=== PATIENT | female | born 2000 | race Caucasian/White ===

== ENCOUNTER 2024-07-16 14:13 | Outpatient (OUT) | payer OTHER, SELFPAY ==
--- OUTSIDE RECORDS SUMMARY | 2022-08-09 15:00 | XMS_ITS | Continuity of Care Document ---
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, [address] [place], [place], [id number], tel:[phone] [facility] Sore throat (chief complaint) Acute pharyngitis, unspecifiedBod y mass index [BMI] 45.0-49.9, adult 3 Aysha Dunham. [address], [place], [id number], [place]. tel:[phone] Referring Provider: Charla Olmstead, [facility] [place], [address]. tel:[phone] Family History Family Member Type Diagnosis Age At Onset Father Problem Cardiovascular disease Father Problem Hypertension Payers Payer name Insurance type Covered democrat ID Gema boyle(s) Home [facility] Health Plan [id number] [place] Medicaid MC [id number] Social History Type Description Quantity Date Captured [...] Mental Status Date Cognitive Assessment Orientation - [place] ed to time, place, person, situation. Patient Care Teams Name Effective Dates (start - stop) Status Members No Information
--- OUTSIDE RECORDS SUMMARY | 2022-10-02 11:51 | XMS_ITS | Continuity of Care Document ---
Author Organization [facility] [employer] Address [facility] [place] [address] Phone Care Team Providers Care Veterinary Pathologist Name Role Phone Drake DONicol Unavailable Unavailable [...] Diagnoses Date Provider Providers Copied on Encounter [facility], [address] [place] [address], [id number], [place] tel:[phone] [facility] No Information 3 Stocks Nicol. [address] [place], [place], [id number] , [place]. tel:[phone] [facility], [address] [place] [address], [id number], [place] tel:[phone] [facility] No Information 3 [facility] Iman. [address] [place], [id number], [place]. tel:[phone] Referring Provider: Iman Gardner [facility], [address], [place], [address]. tel:[phone] [facility], [address] [place] [address], [id number], [place] tel:[phone] [facility] No Information 2 Stocks Nicol. [address] [place], [id number] , [place]. tel:[phone] [facility], [address] [place] [address], [id number], [place] tel:[phone] [facility] No Information Sep-0 2 Stocks Nicol. [address] [place], [id number] , [place]. tel:[phone] [facility], [address] [place] [address], [id number], [place] tel:[phone] [facility] No Information Sep-0 2 Speak John. [address] [place], [id number] . tel:[phone] HOSPITAL DISCHARGE DAY [facility], [address] [place] [address], [id number], [place] tel:[phone] [facility] No Information Sep-0 2 Stocks Nicol. [address] [place], [id number] , [place]. tel:[phone] [facility], [address] [place] [address], [id number], [place] tel:[phone] [facility] Nuchal cord, delivered, current hospitalizationMec onium stained amniotic fluid, delivered, current [id number] weeks gestation of pregnancySingle live Sep-0 2 Spe[facility] John. [address] [place], [id number] . tel: [phone] OFFICE/OUTPA TIENT VISIT, [facility], [address] [place] [address], [id number], [place] tel:[phone] [facility] No Information 2 Stocks Nicol. [address] [place], [id number] , [place]. tel: [phone] OFFICE/OUTPA TIENT VISIT, [facility], [address] [place] [address], [id number], [place] tel:[phone] [facility] No Information 2 Stocks Nicol. [address] [place], [id number] , [place]. tel: [phone] OFFICE/OUTPA TIENT VISIT, [facility], [address] [place] [address], [id number], [place] tel:[phone] [facility] No Information 2 Stocks Nicol. [address] [place], [id number] , [place]. tel: [phone] OFFICE/OUTPA TIENT VISIT, [facility], [address] [place] [address], [id number], [place] tel:[phone] [facility] No Information 2 Stocks Nicol. [address] [place], [id number] , [place]. tel: [phone] No Charge Nurse Visit [facility], [address] [place] [address], [id number], [place] tel:[phone] [facility] No Information 2 Stocks Nicol. [address] [place], [id number] , [place]. tel: [phone] OFFICE/OUTPA TIENT VISIT, [facility], [address] [place] [address], [id number], [place] tel:[phone] [facility] No Information 2 Stocks Nicol. [address] [place], [id number] , [place]. tel: [phone] [facility], [address] [place] [address], [id number], [place] tel:[phone] [facility] No Information 2 Stocks Nicol. [address] [place], [id number] , [place]. tel: [phone] OFFICE/OUTPA TIENT VISIT, [facility], [address] [place] [address], [id number], [place] tel:[phone] [facility] No Information 2 Stocks Nicol. [address] [place], [id number] , [place]. tel: [phone] No Charge Nurse Visit [facility], [address] [place] [address], [id number], [place] tel:[phone] [facility] No Information 2 Stocks Nicol. [address] [place], [id number] , [place]. tel: [phone] OFFICE/OUTPA TIENT VISIT, [facility], [address] [place] [address], [id number], [place] tel:[phone] [facility] History of gestational hypertension 0 2 Everett Linares. [address] [place], [id number] , [place]. tel: [phone] OFFICE/OUTPA TIENT VISIT, [facility], [address] [place] [address], [id number], [place] tel:[phone] [facility] No Information 2 Stocks Nicol. [address] [place], [id number] , [place]. tel: [phone] OFFICE/OUTPA TIENT VISIT, [facility], [address] [place] [address], [id number], [place] tel:[phone] [facility] No Information 2 Stocks Nicol. [address] [place], [id number] , [place]. tel: [phone] OFFICE/OUTPA TIENT VISIT, [facility], [address] [place] [address], [id number], [place] tel:[phone] [facility] No Information 2 Stocks Nicol. [address] [place], [id number] , [place]. tel: [phone] OFFICE/OUTPA TIENT VISIT, [facility], [address] [place] [address], [id number], [place] tel:[phone] [facility] No Information 2 Stocks Nicol. [address] [place], [id number] , [place]. tel: [phone] [facility], [address] [place] [address], [id number], [place] tel:[phone] [facility] Depression (chief complaint) No Information 1 Stocks Nicol. [address] [place], [id number] , [place]. tel: [phone] No Charge Nurse Visit [facility], [address] [place] [address], [id number], [place] tel:[phone] [facility] No Information 0 Stocks Nicol. [address] [place], [id number] , [place]. tel: [phone] [facility], [address] [place] [address], [id number], [place] tel:[phone] [facility] Depression (chief complaint) Major depressive disorder, single episode, unspecified 0 Stocks Nicol. [address] [place], [id number] , [place]. tel: [phone] [facility], [address] [place] [address], [id number], [place] tel:[phone] [facility] check (chief complaint) No Information 0-202 0 Stocks Nicol. [address] [place], [id number] , [place]. tel: [phone] HOSPITAL DISCHARGE DAY [facility], [address] [place] [address], [id number], [place] tel:[phone] [facility] No Information 0 Stocks Nicol. [address] [place], [id number] , [place]. tel: [phone] OFFICE/OUTPA TIENT VISIT, EST [facility], [address] [place] [address], [id number], [place] tel:[phone] [facility] No Information 0 St[employer] Nicol. [address] [place], [id number] , [place]. tel: [phone] [facility], [address] [place] [address], [id number], [place] tel:[phone] [facility] No Information Nov-0 - 0 [place] Xavier. [address] [place], [id number] , [place]. tel: [phone] OFFICE/OUTPA TIENT VISIT, [facility], [address] [place] [address], [id number], [place] tel:[phone] [facility] No Information 0 Stocks Nicol. [address] [place], [place], [id number] , [place]. tel: [phone] OFFICE/OUTPA TIENT VISIT, [facility], [address] [place] [address], [id number], [place] tel:[phone] [facility] No Information Sep-2 0 Stocks Nicol. [address] [place], [id number] , [place]. tel: [phone] OFFICE/OUTPA TIENT VISIT, [facility], [address] [place] [address], [id number], [place] tel:[phone] [facility] No Information Sep- 0 Stocks Nicol. [address] [place], [id number] , [place]. tel: [phone] [facility], [address] [place] [address], [id number], [place] tel:[phone] [facility] No Information Sep-1 0 [place] Xavier. [address] [place], [id number] , [place]. tel: [phone] OFFICE/OUTPA TIENT VISIT, [facility], [address] [place] [address], [id number], [place] tel:[phone] [facility] No Information Sep-0 2- 0 Stocks Nicol. [address] [place], [id number] , [place]. tel: [phone] [facility], [address] [place] [address], [id number], [place] tel:[phone] [facility] No Information 0 [place] Xavier. [address] [place], [place], [id number] , [place]. tel: [phone] OFFICE/OUTPA TIENT VISIT, [facility], [address] [place] [address], [id number], [place] tel:[phone] [facility] No Information 0 Stocks Nicol. [address] [place], [id number] , [place]. tel: [phone] OFFICE/OUTPA TIENT VISIT, [facility], [address] [place] [address], [id number], [place] tel:[phone] [facility] No Information 0 Stocks Nicol. [address] [place], [id number] , [place]. tel: [phone] [facility], [address] [place] [address], [id number], [place] tel:[phone] [facility] No Information 0 [place] Xavier. [address] [place], [id number] , [place]. tel: [phone] [facility], [address] [place] [address], [id number], [place] tel:[phone] [facility] No Information 0 Jj MARYSOLH Iman. [address] [place], [address], [place]. tel: [phone] OFFICE/OUTPA TIENT VISIT, [facility], [address] [place] [address], [id number], [place] tel:[phone] [facility] No Information 0 Stocks Nicol. [address] , [place], [id number] , [place]. tel: [phone] OFFICE/OUTPA TIENT VISIT, [facility], [address] [place] [address], [id number], [place] tel:[phone] [facility] No Information 0 Stocks Nicol. [address] [place], [id number] , [place]. tel: [phone] OFFICE/OUTPA TIENT VISIT, [facility], [address] [place] [address], [id number], [place] tel:[phone] [facility] No Information 0 Stocks Nicol. [address] [place], [id number] , [place]. tel: [phone] OFFICE/OUTPA TIENT VISIT, [facility], [address] [place] [address], [id number], [place] tel:[phone] [facility] No Information 0 Stocks Nicol. [address] [place], [id number] , [place]. tel: [phone] OFFICE/OUTPA TIENT VISIT, [facility], [address] [place] [address], [id number], [place] tel:[phone] [facility] No Information 0 Stocks Nicol. [address] [place], [id number] , [place]. tel: [phone] Family History Family Member Type Diagnosis Age At Onset Mother Problem Cardiovascular disease Mother Problem Diabetes mellitus Father Problem (finding) Cardiovascular disease Immunizations Vaccine Date Status Comments Tdap administered Source: New Imm unization Record Flulaval Quad administered Source: New Im munization Record Influenza, quadrivalent, split virus,0.5ml, preserve free administered Source: New Immuniza tion Record Tdap administered Source: [facility] unization Record Payers Payer name Insurance type Covered constitution party ID Gema boyle(s) Dental [employer] [place] [id number] [place] M[place] [id number] [place] [id number] [place] M[place] [id number] [facility] Medicaid MCO CI [id number] Social History Type Description Quantity Date Captured [...] Future Order: Radiology Order Mo rph Scan ([id number]), Ordered on: Ordered Future Order: Radiology Order Mo rph Scan ([id number]), Ordered on: Ordered Future Order: Lab Order Urine pr egnancy ([id number]), Appointment on: , Collected on: Ordered Future Order: Radiology Order Mo rph Scan ([id number]), Ordered on: Ordered History Of Present Illness [...] to Body mass index [BMI] 40.0-44.9, adult influenza vaccine environmental / work hazards nutrition and weight gain counseling, special diet toxoplasmosis precau tions (cats / raw meat) sexual activity exercise indications for ultrasound HIV and other routine t ests risk factors identif ied by history anticipated course of c are illicit / recreational drugs use of any medicatio ns (including supplements, vitamins, herbs, OTC drugs) smoking counseling domestic violence seat belt use travel tobacco (ask, advise , assess, assist and arrange) alcohol childbirth classes / hospital facilities covid vaccine [...] or equal to 95th percentile for age HIV and other routine t ests risk factors identif ied by history anticipated course of c are nutrition and weight gain counseling, special diet toxoplasmosis precau tions (cats / raw meat) exercise indications for ultrasound influenza vaccine environmental / work hazards travel tobacco (ask, advise , assess, assist and arrange) alcohol sexual activity seat belt use childbirth classes / hospital facilities illicit / recreational drugs use of any medicatio ns (including supplements, vitamins, herbs, OTC drugs) smoking counseling domestic violence Assessments Type Assessment Date No Information Patient Care Teams Name Effective Dates (start - stop) Status Members No Information
--- OUTSIDE RECORDS SUMMARY | 2024-02-20 06:30 | XMS_ITS ---
Author Organization [facility] vices Address [address] [place] [id number] Care Team Providers Care Electrician Shop Name Role Phone Juno Ortiz Primary Care Provider REASON FOR VISIT 4 weeks Weight loss Social History Sex Assigned At : Social History Observation Description Sex Assigned At Female Encounters Encounter Location Date Provider Diagnosis Main [address] [place] [id number] 02/20/2024 Juno Ortiz Plan Of Treatment No Information Progress Notes * Se MONTEeDOB:2000 (24 yo F)Acc No.[id number]:02/20/2024 Medical Note Patient: Brianda ARGUELLO Provider: Chidi Ortiz :2000 A ge:23 Y S ex:Female Date:02/20/2024 [address] [id number] Subjective: * Chief Complaints: * 1 . 4 weeks Weight loss. * Medical History: Objective: * Vitals: Assessment: Plan: * Treatment: * Billing Information: * Visit Code: * Procedure Codes: * Electronic signature of IRASEMA Ortiz on 07/16/2024 at 12:58 PM EDT Sign off status: Pending * Provider: Chidi Ortiz Date: 0 02/20/2024 Generated for Printi ng/Faxing/eTransmitting on: 0 07/16/2024 12:58 PM EDT
--- OUTSIDE RECORDS SUMMARY | 2024-03-27 06:30 | XMS_ITS ---
Author Organization [facility] vices Address [address] [place] [id number] Care Team Providers Care Internal Corrosion Specialist Name Role Phone Juno Ortiz Primary Care Provider REASON FOR VISIT 4 week weight loss Social History Sex Assigned At : Social History Observation Description Sex Assigned At Female Encounters Encounter Location Date Provider Diagnosis Main [address] [place] [id number] 03/27/2024 Juno Ortiz Plan Of Treatment No Information Progress Notes * Se MONTEeDOB:2000 (24 yo F)Acc No.[id number]:03/27/2024 Patient: Brinada ARGUELLO Provider: Chidi Ortiz :2000 A ge:23 Y S ex:Female Date:03/27/2024 [address] [facility] Subjective: * Chief Complaints: * 1 . 4 week weight loss. * Medical History: Objective: * Vitals: Assessment: Plan: * Treatment: * Billing Information: * Visit Code: * Procedure Codes: * Electronic signature of IRASEMA Ortiz on 07/16/2024 at 12:58 PM EDT Sign off status: Pending * Provider: Chidi Ortiz Date: 0 03/27/2024 Generated for Printi ng/Faxing/eTransmitting on: 0 07/16/2024 12:58 PM EDT
--- OUTSIDE RECORDS SUMMARY | 2024-07-16 13:10 | XMS_ITS | Encounter Summary ---
Author Organization [facility] Address [address] [place] [address] Care Team Providers Care Fast Food Fry Cook Name Role Phone Unavailable Primary Care Provider Unavailabl e Reason for Visit * Reason Comments Infertility Encounter Details Date Type Department Care Team (Late st Contact Info) Description 07/16/2024 1:10 PM EDT Office Visit [facility] [address] [place] [phone] Beto Quinones, DO [address] [place] [address] Female infertility; PCOS (polycystic ovarian syndrome); Abnormal uterine bleeding (AUB) Social History Tobacco Use Types Packs/Day Years Used Date Smoking Tobacco: Never Assessed Comments Unknown Sex and Gender Information Value Date Recorded Sex Assigned at Not on file Legal Sex Female 1:55 PM EST Gender Identity Not on file Sexual Orientation Not on file documented as of this encounter Last Filed Vital Signs Vital Sign Reading Time Taken Comments Blood Pressure 120/82 07/16/2024 1:18 PM EDT Pulse - - Temperature - - Respiratory Rate - - Oxygen Saturation - - Inhaled Oxygen Concentration - - Weight 133 kg (292 lb 1.9 oz) 07/16/2024 1:18 PM EDT Height 177.8 cm (5' 10 ) 07/16/2024 1:18 PM EDT Body Mass Index 41.91 07/16/2024 1:18 PM EDT documented in this encounter Progress Notes * Johanna Hargrove LPN - 07/16/2024 1:10 PM EDT Reason for Appointment: Patient ID: Patt Monte is a 24 y.o. female who presents for Infertility Patient presents today for Fertility Follow Up appointment. MEDICATIONS Current Outpatient Medications Medication Instructions sertraline (ZOLOFT) 100 mg, Daily ALLERGIES No Known Allergies PROBLEMS Active Ambulatory Problems Diagnosis Date Noted No Active Ambulatory Problems Resolved Ambulatory Problems Diagnosis Date Noted No Resolved Ambulatory Problems No Additional Past Medical History HISTORY PAST MEDICAL HISTORY SOCIAL HISTORY History reviewed. No pertinent past medical history. Social History Tobacco Use Smoking status: Not on file Smokeless tobacco: Not on file Substance Use Topics Alcohol use: Not on file Drug use: Not on file FAMILY HISTORY No family history on file. SURGICAL HISTORY Past Surgical History: Procedure Laterality Date GALLBLADDER REVIEW OF SYSTEMS Review of Systems: Review of Systems Constitutional: Negative. HENT: Negative. Eyes: Negative. Respiratory: Negative. Cardiovascular: Negative. Gastrointestinal: Negative. Genitourinary: Negative. Musculoskeletal: Negative. Skin: Negative. Neurological: Negative. All other systems reviewed and are negative. Hematological: Negative. Endocrine: Negative. Allergic/Immunologic: Negative. OBJECTIVE Objective: Physical Exam Constitutional: Appearance: Normal appearance. She is well-developed. Cardiovascular: Rate and Rhythm: Normal rate and regular rhythm. Pulmonary: Effort: Pulmonary effort is normal. Breath sounds: Normal breath sounds. Abdominal: General: Bowel sounds are normal. There is no distension. Palpations: Abdomen is soft. Tenderness: There is no abdominal tenderness. There is no guarding or rebound. Musculoskeletal: General: No swelling. Normal range of motion. Right lower leg: No edema. Left lower leg: No edema. Neurological: Mental Status: She is alert and oriented to person, place, and time. Skin: General: Skin is warm and dry. Psychiatric: Mood and Affect: Mood normal. Behavior: Behavior normal. Vitals and nursing note reviewed. Exam conducted with a battery service technician present. Vitals: Estimated body mass index is 41.91 kg/m?? as calculated from the following: Height as of this encounter: 5' 10 . Weight as of this encounter: 292 lb 1.9 oz. BP: 120/82 Patient's last menstrual period was 06/10/2024. ASSESSMENT & PLAN ICD-10-CM 1. Female infertility N97.9 Patient presents today to discuss fertility. Patient was given a standing lab order and ultrasound to have obtained. Patient was instructed to call the office once menstrual cycle begins so femara can be called into patients pharmacy. Patient has been instructed to take Femara on days 3-7 of cycle.On day 21 of cycle patient is to have progesterone labs drawn. Patient was advised to have intercourse on days 12, 14, 16, 18, and 20 of cycle. We will do three rounds of Femara and if patient has not conceived by then, we will perform HSG. Patient has voiced understanding and will call our office for any further questions/concerns. Pt partner given semen analysis, pt is currently two days late for cycle. Rx for metformin faxed to pharmacy. No orders of the defined types were placed in this encounter. Follow Up: In 4 months if needed Documented by Johanna Hargrove LPN on behalf of: Beto Quinones DO documented in this encounter Plan of Treatment Upcoming Encounters Date Type Department Care Team (Late st Contact Info) Description 07/29/2024 10:00 AM EDT Ancillary Procedure [facility] [address] [place] [address] [place] [address] Scheduled Orders Name Type Priority Associated Diagnoses Orde r Schedule hCG, quantitative, Lab Routine PCOS (polycystic ovarian syndrome) Abnormal uterine bleeding (AUB) Ordered: 07/16/2024 TSH Lab Routine PCOS (polycystic ovarian syndrome) Abnormal uterine bleeding (AUB) Ordered: 07/16/2024 T4, free Lab Routine PCOS (polycystic ovarian syndrome) Abnormal uterine bleeding (AUB) Ordered: 07/16/2024 CBC and differential Lab Routine PCOS (polycystic ovarian syndrome) Abnormal uterine bleeding (AUB) Ordered: 07/16/2024 Follicle stimulating hormone Lab Routine PCOS (polycystic ovarian syndrome) Abnormal uterine bleeding (AUB) Ordered: 07/16/2024 Luteinizing hormone Lab Routine PCOS (polycystic ovarian syndrome) Abnormal uterine bleeding (AUB) Ordered: 07/16/2024 Hemoglobin A1c Lab Routine Abnormal uterine bleeding (AUB) Ordered: 07/16/2024 DHEA-sulfate Lab Routine PCOS (polycystic ovarian syndrome) Abnormal uterine bleeding (AUB) Ordered: 07/16/2024 DHEA Lab Routine PCOS (polycystic ovarian syndrome) Abnormal uterine bleeding (AUB) Expected: 07/16/2024 (Approximate), Expires: 07/16/2025 US Pelvis w/ TV Imaging Routine PCOS (polycystic ovarian syndrome) Abnormal uterine bleeding (AUB) Expected: 07/16/2024, Expires: 07/16/2025 Antimullerian hormone (AMH) Lab Routine Abnormal uterine bleeding (AUB) Expected: 07/16/2024 (Approximate), Expires: 07/16/2025 documented as of this encounter Visit Diagnoses Diagnosis Female infertility Female infertility of unspecified origin PCOS (polycystic ovarian syndrome) Polycystic ovaries Abnormal uterine bleeding (AUB) documented in this encounter
--- OUTSIDE RECORDS SUMMARY | 2024-07-16 14:20 | XMS_ITS | Clinical Summary ---
Author Organization [facility] Address [id number] [address] [place] [address] Care Team Providers Care Still Operator Gin Name Role Phone No Pcp, No Pcp Primary Care Provider Unavailabl e Allergies No known active allergies Medications amoxicillin-pot clavulanate (AUGMENTIN) 875-125 mg per tablet Take 1 tablet by mouth every 12 (twelve) hours for 10 days. 20 tablet 06/20/2024 07/01/19 25 Encounters Date Type Department Care Team Description 06/20/2024 9:20 PM EDT - 06/20/2024 9:59 PM EDT Emergency [facility] [address] [place] [address] Joby Fabian DO Strep pharyngitis (Primary Dx) Discharge Disposition: Home 06/20/2024 Travel 06/01/2024 9:34 PM EDT - 06/01/2024 10:19 PM EDT Emergency [facility] - Emergency [address] [place] [address] Chele Burt MD Muscle strain of left foot, initial encounter (Primary Dx) Discharge Disposition: Home 06/01/2024 Travel from Last 3 Months Social History Tobacco Use Types Packs/Day Years Used Date Smoking Tobacco: Never Smokeless Tobacco: Never Tobacco Cessation:Counseling Given: Not Answered Alcohol Use Standard Drinks/Week Comments Never 0 (1 standard drink = 0.6 oz pur e alcohol) Hunger Screening Answer Date Recorded Within the past 12 months we worried whether our food would run out before we got money to buy more. Never True 06/20/2024 Within the past 12 months th e food we bought just didn't last and we didn't have money to get more. Never True 06/20/2024 Comments No Sex and Gender Information Value Date Recorded Sex Assigned at Not on file Legal Sex Female 1:05 PM EDT Gender Identity Not on file Sexual Orientation Not on file Last Filed Vital Signs Vital Sign Reading Time Taken Comments Blood Pressure 149/98 06/20/2024 9:14 PM EDT Pulse 118 06/20/2024 9:25 PM EDT Temperature 37.6 C (99.7 F) 06/20/2024 9:14 PM EDT Respiratory Rate 16 06/01/2024 9:40 PM EDT Oxygen Saturation 97% 06/20/2024 9:25 PM EDT Inhaled Oxygen Concentration - - Weight 127 kg (280 lb) 06/20/2024 9:14 PM EDT Height 177.8 cm (5' 10 ) 06/20/2024 9:14 PM EDT Body Mass Index 40.18 06/20/2024 9:14 PM EDT Plan of Treatment Health Maintenance Due Date Last Done Comments Depression Screening 2013 Adult BMI Follow Up Plan 05/30/2019 DTaP,Tdap and Td Vaccines (1 - Tdap) 2020 Pap Smear 2022 Influenza Vaccine 10/06/2024 Adult BMI Screening 06/20/2025 06/20/2024 Tobacco Screening 06/20/2025 06/20/2024 Medical Devices Not on file Procedures Procedure Name Priority Date/Time Associated Diagnosis Comments POCT RAPID STREP A Routine 06/20/2024 9: 16 PM EDT XR ANKLE LT MIN 3 VWS STAT 06/01/2024 9:48 PM EDT XR FOOT LT MIN 3 VWS STAT 06/01/2024 9:48 PM EDT from Last 3 Months Results * (ABNORMAL) POCT rapid strep A (06/20/2024 9:16 PM EDT) [facility] POC Rapid Strep Screen Positive(A ) Negative 06/21/2024 5:36 AM EDT [facility] Structure of throat / Unknown 06/20/2024 9:16 PM EDT 06/21/2024 5:35 AM EDT us Joby Fabian DO POINT OF CARE TEST ORDER INDRA Final Result [facility] [address] [place] [address], [place] * X-ray ankle left minimum 3 views (06/01/2024 9:48 PM EDT) Anatomical Region Laterality Modality Lower Extremities, MSK, Ankle Left Co mputed Radiography 06/01/2024 10:0 9 PM EDT Narrative 06/01/2024 10:09 PM EDT History: Rolling injury to left ankle with lateral pain Exam/Technique: AP, oblique, and lateral views of the left ankle Comparison: None Findings: There is no evidence of fractures of any age and no other focal bony abnormalities. The ankle mortise is intact and normally aligned IMPRESSION: Normal left ankle radiographs. Finalized by David Bowens MD on 06/01/2024 10:09 PM Procedure Note David Bowens MD - 06/01/2024 History: Rolling injury to left ankle with lateral pain Exam/Technique: AP, oblique, and lateral views of the left ankle Comparison: None Findings: There is no evidence of fractures of any age and no other focalbony abnormalities. The ankle mortise is intact and normally aligned IMPRESSION: Normal left ankle radiographs. Finalized by David Bowens MD on 06/01/2024 10:09 PM us Chele Burt MD IMG DIAGNOSTIC IMAGING ORDERABL ES Final Result * X-ray foot left minimum 3 views (06/01/2024 9:48 PM EDT) Anatomical Region Laterality Modality Lower Extremities, MSK, Foot Left Com puted Radiography 06/01/2024 10:0 8 PM EDT Narrative 06/01/2024 10:09 PM EDT History: Rolling injury to left ankle. Lateral pain Exam/Technique: Axial, oblique, and lateral views of the left foot. Comparison: None Findings: No fractures or other focal bony abnormalities are depicted in any location. All joints of the foot appear intact and normally aligned. IMPRESSION: Normal left foot radiographs. Finalized by David Bowens MD on 06/01/2024 10:09 PM Procedure Note David Bowens MD - 06/01/2024 History: Rolling injury to left ankle. Lateral pain Exam/Technique: Axial, oblique, and lateral views of the left foot. Comparison: None Findings: No fractures or other focal bony abnormalities are depicted inany location. All joints of the foot appear intact and normally aligned. IMPRESSION: Normal left foot radiographs. Finalized by David Bowens MD on 06/01/2024 10:09 PM Chele Burt MD IMG DIAGNOSTIC IMAGING ORDERABL ES Final Result from Last [address] [place] [address] [address] [employer] Care Teams Still Operator Gin Relationship Specialty Start Date End Date No Pcp, [place] [address] PCP - General Family Medicine 06/01/24
--- OUTSIDE RECORDS SUMMARY | 2024-07-16 14:21 | XMS_ITS | Encounter Summary ---
Author Organization [facility] Address [address] [place] [address] Care Team Providers Care Lining Strap Closer Name Role Phone Unavailable Primary Care Provider Unavailabl e Encounter Details Date Type Department Care Team (Latest Contact Info) Description 07/13/2024 Travel Social History Tobacco Use Types Packs/Day Years Used Date Smoking Tobacco: Never Assessed Comments Unknown Sex and Gender Information Value Date Recorded Sex Assigned at Not on file Legal Sex Female 1:55 PM EST Gender Identity Not on file Sexual Orientation Not on file documented as of this encounter Plan of Treatment Upcoming Encounters Date Type Department Care Team (Late st Contact Info) Description 07/29/2024 10:00 AM EDT Ancillary Procedure [facility] [address] [place] [address] [place] [address] documented as of this encounter Visit Diagnoses Not on filedocumented in this encounter
--- OUTSIDE RECORDS SUMMARY | 2024-07-16 14:21 | XMS_ITS | Patient Health Record ---
Author Organization [facility] Address [address] [place] [address] Care Team Providers Care Clinical Nurse Occupational Medicine Name Role Phone Juno Ortiz Primary Care Provider Mima Redmond Unavailable [phone] Ernst, Ly Unavailable [phone] Allergies No Known Allergies Results Component Value Reference Range Notes TSH WITH FT4 REFLEX Reviewed date:01/24/2024 08:17:06 AM Interpretation: Performing Lab: Notes/Report: TSH 0.865 0.270-4.200 uIU/mL The [place] [employer] (JOSE M) recommends the following reference ranges for TSH levels during : First trimester: 0.1 to 2.5 mIU/L Second trimester: 0.2 to 3.0 mIU/L Third trimester: 0.3 to 3.0 mIU/L UNLESS OTHERWISE INDICATED, ALL TESTING PERFORMED AT: [id number] [address] [place] [address] WEIGHER ALLOY: ISAIAH ARCE M.D. CLIA NUMBER [id number] CAP ACCREDITATION AUID [id number] LDL-CHOL DIRECT Reviewed date:01/24/2024 08:04:06 AM Interpretation: Performing Lab: Notes/Report: LDL-CHOL, DIRECT 127 <130 mg/dL ADULT LDL CHOLESTEROL CLASSIFICATION <100mg/dL Optimal 100-129 Near/Abov e Optimal 130-159mg/dL Borderlin e High >160mg/dL High Risk Desirable range <100 mg/dL for patients with CHD or diabetes and <70 mg/dL for diabetic patients with known heart disease. COMPREHENSIVE METABOLIC PANE L WITH GFR Reviewed date:01/24/2024 08:23:30 AM Interpretation: Performing Lab: Notes/Report: GLUCOSE 82 65-125 mg/dL BUN 12 6-20 mg/dL CALCIUM 9.3 8.6-10.5 mg/dL CREATININE, BLOOD 0.76 0.51-1.15 mg/dL eGFR (2020 CKD-EPI) 114 >59 mL/min/1.73m2 SODIUM 141 135-148 mmol/L POTASSIUM 4.4 3.5-5.4 mmol/L CHLORIDE 104 96-107 mmol/L CO2 26 18-32 mmol/L ANION GAP 11 7-16 mmol/L T. BILIRUBIN 0.3 <1.3 mg/dL ALK PHOS 56 38-148 U/L AST-SGOT 20 9-40 U/L ALT-SGPT 22 5-33 U/L T. PROTEIN 7.1 6.0-8.3 g/dL ALBUMIN 4.6 3.5-5.2 g/dL POCT A1C Reviewed date:01/23/2024 01:04:20 PM Interpretation: Performing Lab: Notes/Report: LIPID PANEL WITH REFLEX TO D IRECT LDL Reviewed date:01/24/2024 08:23:34 AM Interpretation: Performing Lab: Notes/Report: CHOLESTEROL 219 100-199 mg/dL TRIGLYCERIDES 514 20-149 mg/dL VLDL-CHOL, CALCULATED 103 <30 mg/dL HDL-CHOL 32 >=50 mg/dL LDL-CHOL, CALCULATED SEE NOTE <130 mg/dL Unable to calculate LDL due to triglycerides greater than 400 mg/dl. ADULT LDL CHOLESTEROL CLASSIFICATION <100mg/dL Optimal 100-129 Near/Abov e Optimal 130-159mg/dL Borderlin e High >160mg/dL High Risk Desirable range <100 mg/dL for patients with CHD or diabetes and <70 mg/dL for diabetic patients with known heart disease. Direct LDL is recommended for patients with triglycerides >400. LDL/HDL <4.1 UNABLE TO CALCULATE LDL/HDL RATIO MALE FEMALE below average risk <2.3 <2.3 average risk <5.0 <4.1 moderate risk <7.1 <5.6 high risk >7.1 >5.6 CHOL/HDL 6.8 2.0-4.5 Reason For Referral Reason weight loss Diagnosis 1 Obesities, morbid (E 66.01) Referral Organization Main Referring Provider First Name Juno Referring Provider Last Name Studel Referring Provider Speciality Physician Concrete Mixer Operator Referred Provider Vel Nutrition Morenita herapy Referred Provider Specialty Nutrition Referral Priority Routine Reason weight loss Diagnosis 1 Obesities, morbid (E 66.01) Diagnosis 2 BMI 40.0-44.9, adult (Z68.41) Referral Organization Main Referring Provider First Name Juno Referring Provider Last Name Angel Referring Provider Speciality Physician Concrete Mixer Operator Referred Provider [facility] Referred Provider Specialty Weight Loss General Notes Rosa Gonsales 02/06 11:31:53 AM >{{TOFIRSTNAME}} This is [facility] following up on an outstanding referral that was ordered by your provider. Please call our office at , so we can _update our records., Angela Rod 02/14/2024 09:21:09 AM >no response from patient. Referral Priority Routine Medications Medication SIG (Take, Route, Frequency, Duration) Notes Start Date End Date Status Semaglutide(0.25 or 0.5MG/DOS) 2 MG/3ML 0.25mg Subcutaneous weekly for 28 days 01/23/2024 Active Fenofibrate 48 MG 1 tablet Orally Once a day for 30 day(s) 01/28/2024 Active Carson 3 1000 MG 1 capsule Orally Thr ee times a day for 30 day(s) 01/28/2024 Active Social History Tobacco Use: Social History Observation Description Date Details (start date - stop date) Never Smoker NA - NA Sex Assigned At : Social History Observation Description Sex Assigned At Female CAGE-AID Questionnaire (2018 Edition) Question Answer Notes Have you ever felt that you ought to cut down on your drinking or drug use? No Have people annoyed you by criticizing your drin liana or drug use? No Have you ever felt bad or guilty about your drin liana or drug use? No Have you ever had a drink or used drugs first thing in the morning to steady your nerves or to get rid of a hangover? No CAGE-AID Score 0 Interpretation Negative PRAPARE Question Answer Notes What is your current housing situation? I have h ousing Are you worried about losing your housing? No What is the highest level of school that you have finished? 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 Check all that apply I do not have problems meeting my needs Has lack of transportation k ept you from medical appointments, meetings, work or from getting things needed for daily living? No How often do you see or talk to people that you care about and feel close to? (For example: talking to friends on the phone, visiting friends or family, going to yarsanism or club meetings) More than 5 times a week How stressed are you? Stress is when someone feels tense, nervous, anxious, or can't sleep at night because their mind is troubled Not at all In the past year have you sp ent more than 2 nights in a row in a alf, correction, nursing home center, or juvenile correctional facility? No Are you a refugee? No What country are you from? [place] Do you feel physically and e motionally safe where you currently live? Yes In the past year, have you b een afraid of your partner or ex-partner? No PRAPARE Score: 0 Tobacco Control (Standard) Question Answer Notes Tobacco use: Nonsmoker Problems Problem Type SNOMED Code ICD Code Onset Dates Problem Status W/U Status Risk Notes Problem Obesities, morbi d (E66.01) Active confirmed Problem Body mass index 40+ - morbidly obese (709366598) BMI 40.0-44.9, adult (Z68.41) Active confirmed Problem Menstrual disorder (258633122) Irregular menses (N92.6) Active confirmed Problem Hypertriglyceridemia (756313925) Hypertriglyceridemia (E78.1) Active confirmed Vital Signs Heart Rate 73 /min 02/05/2024 Temperature 98.8 degrees Fahrenheit 01/28/2024 Angela Mattson 01/28/2024 10:07:26 AM EST > Respiratory Rate 18 /min 01/28/2024 Noreen Rod 01/28/2024 10:07:26 AM EST > Blood pressure diastolic 89 mm Hg 02/05/2024 Oximetry 100 % 01/28/2024 Angela Rod 01/28/2024 10:07:26 AM EST > Height-cm 175.26 cm 02/05/2024 Weight-kg 133.36 kg 02/05/2024 Height 69 in 02/05/2024 Blood pressure systolic 135 mm Hg 02/05/2024 Weight 294 lbs 02/05/2024 BMI 43.41 kg/m2 02/05/2024 Encounters Encounter Location Date Provider Diagnosis Main [address], [place] [id number] 01/23/2024 Juno Studd Screening for diabet es mellitus Z13.1 ; Obesities, morbid E66.01 ; BMI 40.0-44.9, adult Z68.41 ; Screening for thyroid disorder Z13.29 ; Screening for cardiovascular condition Z13.6 and Irregular menses N92.6 Main [address] [place] [id number] 01/28/2024 Juno Studd Obesities, morbid E6 6.01 and Hypertriglyceridemia E78.1 Dental Main [address] [place], [place] [id number] 02/05/2024 Mima Redmond Encounter for screening for dental disorders Z13.84 ; Dental caries into dentine K02.62 and Encounter for dental examination and cleaning with abnormal findings Z01.21 Main [address] [place] [id number] 01/23/2024 Juno Studd Main [address] [place] [id number] 01/24/2024 Juno Studd Main [address] [place] [id number] 01/24/2024 Juno Studd Main [address] [place] [id number] 01/25/2024 Juno Studd Main [address] [place] [id number] 01/25/2024 Juno Studd Obesities, morbid E6 6.01 [facility] [address] [facility] [place] [id number] 02/01/2024 Juno Studd Main [address] [facility] [place] [id number] 02/04/2024 Juno Studd Main [address], [place] [id number] 02/05/2024 Juno Studd Main [address] [id number] 02/05/2024 Juno Studd Main [address] [id number] 02/07/2024 Juno Studd Main [address], [place] [id number] 02/20/2024 Juno Studd Obesities, morbid E6 6.01 Assessments Encounter Date Diagnosis (ICD Code) Assessment Notes Treatment Notes Treatment Clinical Notes Section Notes 01/23/2024 Obesities, morbid (ICD-10 - E66.01) pt has been steadily gaining weight. we will start Semaglutide today to aid in weight reduction. discussed witht eh patient the importance of creating ahelathy sleep schedule and geting a good 8 hours of sleep to best help her efforts in losing weight. Diet was discussed as well as the importance of increasing daily activity level. She was also refered to nutrion to help her imporve eating habits. 01/25/2024 Obesities, morbid (ICD-10 - E66.01) 01/28/2024 Obesities, morbid (ICD-10 - E66.01) 01/28/2024 Hypertriglyceridemia (ICD-10 - E78.1) Learning About High Triglycerides material was published will repeat labs in 6 weeks 01/23/2024 Screening for diabet es mellitus (ICD-10 - Z13.1) 02/05/2024 Encounter for screen ing for dental disorders (ICD-10 - Z13.84) 02/20/2024 Obesities, morbid (ICD-10 - E66.01) 02/05/2024 Dental caries into dentine (ICD-10 - K02.62) 01/23/2024 BMI 40.0-44.9, adult (ICD-10 - Z68.41) 01/23/2024 Screening for thyroi d disorder (ICD-10 - Z13.29) 02/05/2024 Encounter for dental examination and cleaning with abnormal findings (ICD-10 - Z01.21) 01/23/2024 Screening for cardiovascular condition (ICD-10 - Z13.6) 01/23/2024 Irregular menses (ICD-10 - N92.6) pt agrees to see OB will set up own appointment Plan Of Treatment No Information Insurance Providers Payer Name Payer Address Payer Phone Subscriber Number Group Number Insured Name Patient Relationship to Insured Coverage Start Date Coverage End Date [facility] [address] [place] [address] [id number] Brianda Harding Self - patient is the insured 4 Medical (General) History Medical History History ICD Code miscariage Surgical History Surgery Date(Month/Year) cholecystectomy 2022 Hospitalization History Reason Date(Month/Year) see above
--- OUTSIDE RECORDS SUMMARY | 2024-07-16 14:21 | XMS_ITS | Encounter Summary ---
Author Organization [facility] Address [address] [place] [address] Care Team Providers Care Brand Leader Name Role Phone Unavailable Primary Care Provider Unavailabl e Encounter Details Date Type Department Care Team (Late st Contact Info) Description 07/16/2024 Bamboo flowsheet [facility] [address] [place] [address] Beto Quinones [address] [place], [place] [address] Social History Tobacco Use Types Packs/Day Years [...] AM EDT Ancillary Procedure [facility] [address] [place] [address] documented as of this encounter Visit Diagnoses Not on filedocumented in this encounter
--- OUTSIDE RECORDS SUMMARY | 2024-07-16 14:21 | XMS_ITS | Clinical Summary ---
Author Organization [facility] Address [address] [place] [address] Care Team Providers Care Electrician Constructor Supervisor Name Role Phone Unavailable Primary Care Provider Unavailabl e Allergies No known active allergies Medications sertraline (Zoloft) 100 MG tablet Take 100 mg by mouth Daily 08/13/2023 Active metFORMIN XR (Glucophage-XR) 500 MG 24 hr tabletIndication s:PCOS (polycystic ovarian syndrome),Abnorm al uterine bleeding (AUB) Take 1 tablet (500 mg) by mouth in the evening. Take with meals Do not crush, chew, or split. 30 tablet 11 07/16/2024 Active Encounters Date Type Department Care Team Description 07/16/2024 1:10 PM EDT Office Visit [facility] [address] [place] [id number] Beto Quinones DO Female infertility; PCOS (polycystic ovarian syndrome); Abnormal uterine bleeding (AUB) 07/16/2024 Bamboo flowsheet [facility] [address] [place] [address] Beto Quinones DO 07/13/2024 Travel from Last 3 Months Social History [...] Mass Index 41.91 07/16/2024 1:18 PM EDT Plan of Treatment Upcoming Encounters Date Type Department Care Team (Late st Contact Info) Description 07/29/2024 10:00 AM EDT Ancillary Procedure [facility] [address] [facility] [place] [id number] Insurance [employer]
[2024-07-16 14:34] LABS: Basophils Percent Auto 0.4 % (0.2-2.0); Eosinophils Absolute Auto 0.1 10^3/uL (0.0-0.7); Eosinophils Percent Auto 1.6 % (0.9-7.0); Hemoglobin 12.8 g/dL (12.0-16.0); Immature Granulocytes Abs Auto 0.03 10^3/uL (0.00-0.03); Immature Granulocytes Pct Auto 0.4 % (0.0-0.5); Lymphocytes Absolute Auto 2.3 10^3/uL (1.2-3.8); Lymphocytes Percent Auto 28.9 % (20.5-60.0); Mean Corpuscular HGB Conc 34.6 g/dL (29.9-35.2); Mean Corpuscular Hemoglobin 29.1 pg (26.7-34.0); Mean Corpuscular Volume 84.1 fL (81.0-99.0); Mean Platelet Volume 9.8 fL (9.5-13.5); Monocytes Absolute Auto 0.3 10^3/uL (0.3-0.8); Monocytes Percent Auto 3.9 % (1.7-12.0); Neutrophils Absolute Auto 5.2 10^3/uL (1.4-6.5); Neutrophils Percent Auto 64.8 % (43.0-75.0); Platelet Count 300 10^3/uL (150-450); Red Cell Distribution Width 12.8 % (11.0-15.0)
[2024-07-16 14:51] LABS: Estimated Average Glucose 111 mg/dL; Glycohemoglobin A1C 5.5 % (4.5-6.2)
[2024-07-16 15:10] LABS: Thyroid Stimulating Hormone 0.812 uIU/mL (0.358-3.740)
[2024-07-16 15:30] LABS: HCG Quantitative <1 mIU/mL
[2024-07-16 15:47] LABS: Free T4 0.89 ng/dL (0.76-1.46)
[2024-07-17 04:07] LABS: FSH 2.6 mIU/mL (.); Luteinizing Hormone(LH) 3.2 mIU/mL (.)
[2024-07-19 04:50] LABS: Anti-Mullerian Hormone (AMH) 6.66 ng/mL (.)
[2024-07-20 12:08] LABS: DHEA, Serum 196 ng/dL (31-701)
== END 2024-07-16 14:14 | disposition home or self-care (01) ==
PROVIDERS: Visit Provider Obstetrics & Gynecology
DX: E28.2 Polycystic ovarian syndrome (principal); N93.9 Abnormal uterine and vaginal bleeding, unspecified; N92.6 Irregular menstruation, unspecified
CPT/HCPCS: 36415; 82397; 82626; 82627; 83001; 83002; 83036; 84439; 84443; 84702; 85025

== ENCOUNTER 2024-10-13 18:13 | Emergency (ER) | payer OTHER, BC, SELFPAY ==
--- OUTSIDE RECORDS SUMMARY | 2022-08-09 15:00 | XMS_ITS | Continuity of Care Document ---
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 Phone Charla Saxena Unavailable Unavail able Allergies, Adverse Reactions, Alerts Substance Reaction Status Criticality No Known Allergies Active No Inform ation Medications Medication Instructions Dosage Effective Dates (start - stop) Status Comments amoxicillin 875 mg tablet take 1 tablet by oral route every 12 hours 875 MG - Active Procedures Procedure Date STREP A ASSAY W/OPTIC STREP A ASSAY W/OPTIC OFFICE/OUTPATIENT VISIT, NEW Results Test Name Date and Time Measure Units Reference Range Abnormal Flag Status Commen ts Panel Description: Strep A Screen Final Strep A Screen 19:50:00 Negative Final Advance Directives Directive Yes / No Effective Date File Name No Information Encounters Encounter Description Practice Location Reason(s) For Visit Diagnoses Date Provider Providers Copied on Encounter OFFICE/OUTPA TIENT VISIT, NEW [facility], [address] [facility] [place], [id number], tel:[phone] [facility] Sore throat (chief complaint) Acute pharyngitis, unspecifiedBod y mass index [BMI] 45.0-49.9, adult 3 Aysha Dunham. [address], [place], [id number], [place]. tel:[phone] Referring Provider: Charla Olmstead, [facility] [place], [address]. tel:[phone] Family History Family Member Type Diagnosis Age At Onset Father Problem Cardiovascular disease Father Problem Hypertension Payers Payer name Insurance type Covered alliance party ID Gema boyle(s) Home [facility] Health Plan [id number] [place] Medicaid [id number] Social History Type Description Quantity Date Captured Comments Alcohol Use Details No Caffeine Use Details soda Tobacco Use Status Current non-smoker Smoking Status Never smoker Non-Smoking Tobacco Use Details : No Details Available : No Details Available Sex Female Gender Identity Female Vital Signs Date / Time: Height Weight BMI Pulse Rate Blood Pressure Temperature Respiratory Rate Body Surface Area Head Circumference Head Circ. Percentile Wt./Jc. Percentile BMI percentile Pulse Ox Inhaled Ox 7:50 PM 70.00 in 135.080 kg (297.80 lbs) 42.7 3 kg/m eter (2) 87 /min 122/88 mm[Hg] 97.70 F 18 /min 97 % Chief Complaint And Reason For Visit From encounter dated '08/09/2022 19:00'. Sore throat (chief complaint). Description: Onset: 1 Week. The problem is severe. Pain level: 8/10.The problem has worsened. The patient denies aggravating factors. The patient denies relieving factors. Associated symptoms include sinus pressure. Pertinent negatives include chills/rigors, cough, dy spnea, facial pain, fatigue, fever, headache, hemoptysis, myalgia, nasal congestion, otalgia, pharyngitis, postnasal drainage, rash, rhinitis, sputum, tooth pain or wheezing. Additional information: Pt presents with a ST x 1 week. She states it has gotten worse today and feels like she's swallowing glass. Hx of frequent strep. Reason For Referral Reason For Referral No Information History Of Present Illness Encounter Date Complaint History Of Prese nt Illness Sore throat Onset: 1 Week. T he problem is severe. Pain level: 8/10. The problem has worsened. The patient denies aggravating factors. The patient denies relieving factors. Associated symptoms include sinus pressure. Pertinent negatives include chills/rigors, cough, dyspnea, facial pain, fatigue, fever, headache, hemoptysis, myalgia, nasal congestion, otalgia, pharyngitis, postnasal drainage, rash, rhinitis, sputum, tooth pain or wheezing. Additional information: Pt presents with a ST x 1 week. She states it has gotten worse today and feels like she's swallowing glass. Hx of frequent strep. Functional Status Date Functional Assessmen t Pain Score 8/10 Instructions Date Instruction Additional Infor eli Patients treatment p suresh: -Complete antibiotics as RX -Strep test was negative-Monitor for signs of allergy to the medication such as lips or tongue swelling and discontinue and contact office for alternate medication to be sent in -Use tylenol or motrin OTC as directed on the label for age/weight. RTC PRN 7-10 days Related to Acute pharyngitis, unspecified Dietary needs education Related to Body mass index [BMI] 45.0-49.9, adult Assessments Type Assessment Date assessment Acute pharyngitis, unspecified J impression Patient presents to the urgent care with complaint of sore throat that has been there for a week and only getting worse. States that she cannot even swallow any longer because of the pain that she has in her throat. Exam reveals old bilateral AOM with pharynx erythema. Treatment is as follows assessment Body mass index [BMI] 45.0-49.9, adult Mental Status Date Cognitive Assessment Orientation - [place] ed to time, place, person, situation. Patient Care Teams Name Effective Dates (start - stop) Status Members No Information
--- OUTSIDE RECORDS SUMMARY | 2022-10-02 11:51 | XMS_ITS | Continuity of Care Document ---
Author Organization [facility] [employer] Address [facility] [place] [address] Phone Care Team Providers Care Director Of Mobile Marketing Name Role Phone Drake DONicol Unavailable Unavailable Allergies, Adverse Reactions, Alerts Substance Reaction Status Criticality Penicillins Hives/Skin Rash(unknown) Active No Information Medications Medication Instructions Dosage Effective Dates (start - stop) Status Comments Citalopram Hydrobromide 10 MG Oral Tablet Take 1 tablet by mouth once daily - Active magnesium 400 mg (as magnesium oxide) tablet take 1 tablet by oral route 2 times every day 1 tablet - Active 28 mg iron-800 mcg tablet take 1 Tablet by Oral route once 1 Tablet - Active Enfamom samples given to pt in office ibuprofen 800 mg tablet take 1 tablet by oral route 3 times every day with food as needed 800 MG - Active Problems Condition Type Effective Dates (start - stop) Clini stephanie Status Comments No Known Problems Procedures Procedure Date PERIODIC ORAL EVALUATION EST PT 023 BITEWINGS - FOUR IMAGES PANORAMIC IMAGE PROPHYLAXIS - ADULT Treatment Plan Completed [facility] URINALYSIS, AUTO, W/O SCOPE OFFICE/OUTPATIENT VISIT, EST OFFICE/OUTPATIENT VISIT, EST URINALYSIS, AUTO, W/O SCOPE OFFICE/OUTPATIENT VISIT, EST URINALYSIS, AUTO, W/O SCOPE URINALYSIS, AUTO, W/O SCOPE OFFICE/OUTPATIENT VISIT, EST No Charge Nurse Visit OFFICE/OUTPATIENT VISIT, EST URINALYSIS, AUTO, W/O SCOPE OFFICE/OUTPATIENT VISIT, EST IMMUNIZATION ADMIN TDAP VACCINE >7 IM URINALYSIS, AUTO, W/O SCOPE No Charge Nurse Visit URINALYSIS, AUTO, W/O SCOPE OFFICE/OUTPATIENT VISIT, EST URINALYSIS, AUTO, W/O SCOPE OFFICE/OUTPATIENT VISIT, EST OFFICE/OUTPATIENT VISIT, EST URINALYSIS, AUTO, W/O SCOPE URINALYSIS, AUTO, W/O SCOPE OFFICE/OUTPATIENT VISIT, EST URINALYSIS, AUTO, W/O SCOPE URINE TEST OFFICE/OUTPATIENT VISIT, EST IMMUNIZATION ADMIN FLU VAC NO PRSV 4 LUPIS 3 YRS+ VV-OFFICE/OUTPATIENT VISIT EST No Charge Nurse Visit Telephone (Audio Only) Office Visit (Est ) [place] Post Visit [facility] URINALYSIS, AUTO, W/O SCOPE OFFICE/OUTPATIENT VISIT, EST Resin-Based Composite-One Surface, Poste rior Treatment Plan Completed OFFICE/OUTPATIENT VISIT, EST IMMUNIZATION ADMIN FLU VAC NO PRSV 4 LUPIS 3 YRS+ URINALYSIS, AUTO, W/O SCOPE OFFICE/OUTPATIENT VISIT, EST URINALYSIS, AUTO, W/O SCOPE OFFICE/OUTPATIENT VISIT, EST URINALYSIS, AUTO, W/O SCOPE Resin-Based Composite-Three Surfaces, Po sterior Resin-Based Composite-Two Surfaces, Post erior Resin-Based Composite-Two Surfaces, Post erior OFFICE/OUTPATIENT VISIT, EST URINALYSIS, AUTO, W/O SCOPE Resin-Based Composite-One Surface, Poste rior Resin-Based Composite-Three Surfaces, Po sterior Resin-Based Composite-Three Surfaces, Po sterior Resin-Based Composite-Two Surfaces, Post erior OFFICE/OUTPATIENT VISIT, EST URINALYSIS, AUTO, W/O SCOPE IMMUNIZATION ADMIN TDAP VACCINE >7 IM OFFICE/OUTPATIENT VISIT, EST URINALYSIS, AUTO, W/O SCOPE Resin-Based Composite-Two Surfaces, Post erior Resin-Based Composite-Three Surfaces, Po sterior Comprehensive Oral Evaluation-New Or Est ablished P Panoramic Film Bitewings-Four Films Prophylaxis-Adult OFFICE/OUTPATIENT VISIT, EST URINALYSIS, AUTO, W/O SCOPE OFFICE/OUTPATIENT VISIT, EST URINALYSIS, AUTO, W/O SCOPE URINALYSIS, AUTO, W/O SCOPE OFFICE/OUTPATIENT VISIT, EST ROUTINE VENIPUNCTURE OFFICE/OUTPATIENT VISIT, EST URINALYSIS, AUTO, W/O SCOPE URINALYSIS, AUTO, W/O SCOPE URINE TEST OFFICE/OUTPATIENT VISIT, NEW Advance Directives Directive Yes / No Effective Date File Name No Information Encounters Encounter Description Practice Location Reason(s) For Visit Diagnoses Date Provider Providers Copied on Encounter [facility], [address] [place] [address], [id number], [place] tel:[phone] [facility] No Information 3 [facility]. [address] [place], [id number] , [place]. tel:[phone] [facility], [address] [place] [address], [id number], [place] tel:[phone] [facility] No Information 3 [facility]. [address] [place], [address], [place]. tel:[phone] Referring Provider: Iman Gardner [facility], [address], [place], [address]. tel:[phone] [facility], [address] [place] [address], [id number], [place] tel:[phone] [facility] No Information 2 [facility]. [address] [place], [id number] , [place]. tel:[phone] [facility], [address] [place] [address], [id number], [place] tel:[phone] [facility] No Information Sep-0 2 [facility]. [address] [place], [id number] , [place]. tel:[phone] [facility], [address] [place] [address], [id number], [place] tel:[phone] [facility] No Information Sep-0 2 [facility]. [address] [place], [id number] . tel:[phone] HOSPITAL DISCHARGE DAY [facility], [address] [place] [address], [id number], [place] tel:[phone] [facility] No Information Sep-0 2 [facility]. [address] [place], [id number] , [place]. tel:[phone] [facility], [address] [place] [address], [id number], [place] tel:[phone] [facility] Nuchal cord, delivered, current hospitalizationMec onium stained amniotic fluid, delivered, current [id number] weeks gestation of pregnancySingle live Sep-0 2 [facility]. [address] [place], [id number] . tel: [phone] OFFICE/OUTPA TIENT VISIT, [facility], [address] [place] [address], [id number], [place] tel:[phone] [facility] No Information 2 [facility]. [address] [place], [id number] , [place]. tel: [phone] OFFICE/OUTPA TIENT VISIT, [facility], [address] [place] [address], [id number], [place] tel:[phone] [facility] No Information 2 [facility]. [address] [place], [id number] , [place]. tel: [phone] OFFICE/OUTPA TIENT VISIT, [facility], [address] [place] [address], [id number], [place] tel:[phone] [facility] No Information 2 [facility]. [address] [place], [id number] , [place]. tel: [phone] OFFICE/OUTPA TIENT VISIT, [facility], [address] [place] [address], [id number], [place] tel:[phone] [facility] No Information 2 [facility]. [address] [place], [id number] , [place]. tel: [phone] No Charge Nurse Visit [facility], [address] [place] [address], [id number], [place] tel:[phone] [facility] No Information 2 [facility]. [address] [place] [place], [id number] , [place]. tel: [phone] OFFICE/OUTPA TIENT VISIT, [facility], [address] [place] [address], [id number], [place] tel:[phone] [facility] No Information 2 [facility]. [address] [place], [id number] , [place]. tel: [phone] [facility], [address] [place] [address], [id number], [place] tel:[phone] [facility] No Information 2 [facility]. [address] [place] [place], [id number] , [place]. tel: [phone] OFFICE/OUTPA TIENT VISIT, [facility], [address] [place] [address], [id number], [place] tel:[phone] [facility] No Information 2 [facility]. [address] [place] [place], [id number] , [place]. tel: [phone] No Charge Nurse Visit [facility], [address] [place] [address], [id number], [place] tel:[phone] [facility] No Information 2 [facility]. [address] [place], [id number] , [place]. tel: [phone] OFFICE/OUTPA TIENT VISIT, [facility], [address] [place] [address], [id number], [place] tel:[phone] [facility] History of gestational hypertension 0 2 Everett Linares. [address] [place], [id number] , [place]. tel: [phone] OFFICE/OUTPA TIENT VISIT, [facility], [address] [place] [address], [id number], [place] tel:[phone] [facility] No Information 2 [facility]. [address] [place], [id number] , [place]. tel: [phone] OFFICE/OUTPA TIENT VISIT, [facility], [address] [place] [address], [id number], [place] tel:[phone] [facility] No Information 2 [facility] [facility]. [address] [place], [id number] , [place]. tel: [phone] OFFICE/OUTPA TIENT VISIT, [facility], [address] [place] [address], [id number], [place] tel:[phone] [facility] No Information 2 [facility]. [address] [place], [id number] , [place]. tel: [phone] OFFICE/OUTPA TIENT VISIT, [facility], [address] [place] [address], [id number], [place] tel:[phone] [facility] No Information 2 [facility]. [address] [place], [id number] , [place]. tel: [phone] [facility], [address] [place] [address], [id number], [place] tel:[phone] [facility] Depression (chief complaint) No Information 1 [facility]. [address] [place], [id number] , [place]. tel: [phone] No Charge Nurse Visit [facility], [address] [place] [address], [id number], [place] tel:[phone] [facility] No Information 0 [facility]. [address] [place], [id number] , [place]. tel: [phone] [facility], [address] [place] [address], [id number], [place] tel:[phone] [facility] Depression (chief complaint) Major depressive disorder, single episode, unspecified 0 [facility]. [address] [place], [id number] , [place]. tel: [phone] [facility], [address] [place] [address], [id number], [place] tel:[phone] [facility] check (chief complaint) No Information 0-202 0 [facility]. [address] [place], [id number] , [place]. tel: [phone] HOSPITAL DISCHARGE DAY [facility], [address] [place] [address], [id number], [place] tel:[phone] [facility] No Information 0 [facility] [facility]. [address] [place], [id number] , [place]. tel: [phone] OFFICE/OUTPA TIENT VISIT, EST [facility], [address] [place] [address], [id number], [place] tel:[phone] [facility] No Information 0 [facility]. [address] [place], [id number] , [place]. tel: [phone] [facility], [address] [place] [address], [id number], [place] tel:[phone] [facility] No Information Nov-0 - 0 [facility]. [address] [place] [place], [id number] , [place]. tel: [phone] OFFICE/OUTPA TIENT VISIT, [facility], [address] [place] [address], [id number], [place] tel:[phone] [facility] No Information 0 [facility]. [address] [place], [id number] , [place]. tel: [phone] OFFICE/OUTPA TIENT VISIT, [facility], [address] [place] [address], [id number], [place] tel:[phone] [facility] No Information Sep-2 0 [facility]. [address] [place], [id number] , [place]. tel: [phone] OFFICE/OUTPA TIENT VISIT, [facility], [address] [place] [address], [id number], [place] tel:[phone] [facility] No Information Sep- 0 [facility]. [address] [place], [id number] , [place]. tel: [phone] [facility], [address] [place] [address], [id number], [place] tel:[phone] [facility] No Information Sep-1 0 [facility]. [address] [place] [place], [id number] , [place]. tel: [phone] OFFICE/OUTPA TIENT VISIT, [facility], [address] [place] [address], [id number], [place] tel:[phone] [facility] No Information Sep-0 2- 0 [facility]. [address] [place], [id number] , [place]. tel: [phone] [facility], [address] [place] [address], [id number], [place] tel:[phone] [facility] No Information 0 [facility]. [address] [place], [place], [id number] , [place]. tel: [phone] OFFICE/OUTPA TIENT VISIT, [facility], [address] [place] [address], [id number], [place] tel:[phone] [facility] No Information 0 [facility]. [address] [place], [id number] , [place]. tel: [phone] OFFICE/OUTPA TIENT VISIT, [facility], [address] [place] [address], [id number], [place] tel:[phone] [facility] No Information 0 [facility]. [address] [place], [id number] , [place]. tel: [phone] [facility], [address] [place] [address], [id number], [place] tel:[phone] [facility] No Information 0 [facility]. [address] [place], [id number] , [place]. tel: [phone] [facility], [address] [place] [address], [id number], [place] tel:[phone] [facility] No Information 0 Jj MARYSOLH [facility]. [address] [place], [address], [place]. tel: [phone] OFFICE/OUTPA TIENT VISIT, [facility], [address] [place] [address], [id number], [place] tel:[phone] [facility] No Information 0 [facility]. [address] , [place], [id number] , [place]. tel: [phone] OFFICE/OUTPA TIENT VISIT, [facility], [address] [place] [address], [id number], [place] tel:[phone] [facility] No Information 0 [facility]. [address] [place], [id number] , [place]. tel: [phone] OFFICE/OUTPA TIENT VISIT, [facility], [address] [place] [address], [id number], [place] tel:[phone] [facility] No Information 0 [facility]. [address] [place], [id number] , [place]. tel: [phone] OFFICE/OUTPA TIENT VISIT, [facility], [address] [place] [address], [id number], [place] tel:[phone] [facility] No Information 0 [facility]. [address] [place], [id number] , [place]. tel: [phone] OFFICE/OUTPA TIENT VISIT, [facility], [address] [place] [address], [id number], [place] tel:[phone] [facility] No Information 0 [facility]. [address] [place], [id number] , [place]. tel: [phone] Family History Family Member Type Diagnosis Age At Onset Mother Problem Cardiovascular disease Mother Problem Diabetes mellitus Father Problem (finding) Cardiovascular disease Immunizations Vaccine Date Status Comments Tdap administered Source: New Imm unization Record Flulaval Quad administered Source: New Im munization Record Influenza, quadrivalent, split virus,0.5ml, preserve free administered Source: New Immuniza tion Record Tdap administered Source: [facility] unization Record Payers Payer name Insurance type Covered alliance party ID Gema boyle(s) [employer] [place] [id number] [place] [employer] MCO CI [id number] [place] [employer] M[place] CI [id number] [place] [employer] MCO CI [id number] [facility] Medicaid MCO CI [id number] Social History Type Description Quantity Date Captured Comments Sex Female Smoking Status No Information Sexual Orientation Straight or heterosexual Gender Identity Female Chief Complaint And Reason For Visit No Information Reason For Referral Reason For Referral No Information Plan Of Treatment Date Type Action Status Goal Dietary manageme nt education, guidance, and counseling completed Goal Dietary manageme nt education, guidance, and counseling completed Patient Education Weeks 34 to 36 of Your : Care Instructions completed Patient Education Weeks 26 to 30 of Your : Care Instructions completed Patient Education Weeks 14 to 18 of Your : Care Instructions completed Patient Education Weeks 14 to 18 of Your : Care Instructions completed Patient Education Tests During a High-Risk : Care Instructions completed Patient Education Weeks 34 to 36 of Your : Care Instructions completed Patient Education Weeks 34 to 36 of Your : Care Instructions completed Patient Education Weeks 34 to 36 of Your : Care Instructions completed Patient Education Weeks 30 to 32 of Your : Care Instructions completed Patient Education Weeks 30 to 32 of Your : Care Instructions completed Future Order: Radiology Order Mo rph Scan ([id number]), Ordered on: Ordered Future Order: Radiology Order Mo rph Scan ([id number]), Ordered on: Ordered Future Order: Lab Order Urine pr egnancy ([id number]), Appointment on: , Collected on: Ordered Future Order: Radiology Order Mo rph Scan ([id number]), Ordered on: Ordered History Of Present Illness Encounter Date Complaint History Of Prese nt Illness Depression There is improve ment of initial symptoms. The patient reports functioning as somewhat difficult. The patient presents with difficulty falling asleep and difficulty staying asleep. Additional information: She is taking her citalopram consistently. The hydroxyzine is only helping somewhat with sleep. Feels like she is managing okay with the depression. Wants to increase the dose. Depression This is a follow up visit. The patient presents with difficulty falling asleep and difficulty staying asleep but denies loss of appetite. Additional information: Depression isn't better or worse. Taking the 10 mg of celexa. check The patient has no feeding complications, nursing difficulties, breast problems, vaginal bleeding, urinary problems or bowel problems. She has not resumed sexual activity. Additional Information: Not having much bleeding. Bottlefeeding. No depression. Light lochia. No pain. She would like to start pill. Functional Status Date Functional Assessmen t No Information Instructions Date Instruction Additional Infor eli Giving encouragement to exercise Related to Body mass index [BMI] 40.0-44.9, adult Dietary management e ducation, guidance, and counseling Related to Body mass index [BMI] 40.0-44.9, adult nutrition and weight gain counseling, special diet toxoplasmosis precau tions (cats / raw meat) sexual activity exercise indications for ultrasound influenza vaccine environmental / work hazards HIV and other routine t ests risk factors identif ied by history anticipated course of c are smoking counseling domestic violence seat belt use travel tobacco (ask, advise , assess, assist and arrange) alcohol illicit / recreational drugs Feb-25-2022 use of any medicatio ns (including supplements, vitamins, herbs, OTC drugs) childbirth classes / hospital facilities covid vaccine recommend Will increase the hy droxyzine and celexa. Refills sent in. Call if need to adjust further. Patient is at home and I in my office. She consents to virtual visit. Related to Major depressive disorder, single episode, unspecified Patient increased to 20 mg of celexa. Call if depression worsens. Follow up in 2 weeks. She is at home and I am in my office. Telephone call for 5 min. Related to Major depressive disorder, single episode, unspecified Follow up in 4 weeks . Can start control pills next week. Related to Encounter for routine follow-up No leaning out of the window signs and symptoms of la bor abnormal lab values influenza vaccine selecting a care provide r smoking counseling domestic violence family pl anning / tubal sterilization TDAP vaccination Exercises education, guidance, and counseling Related to Body mass index (BMI) pediatric, greater than or equal to 95th percentile for age Dietary management e ducation, guidance, and counseling Related to Body mass index (BMI) pediatric, greater than or equal to 95th percentile for age illicit / recreational drugs HIV and other routine t ests risk factors identif ied by history anticipated course of c are nutrition and weight gain counseling, special diet toxoplasmosis precau tions (cats / raw meat) sexual activity exercise indications for ultrasound influenza vaccine environmental / work hazards travel tobacco (ask, advise , assess, assist and arrange) alcohol smoking counseling domestic violence seat belt use childbirth classes / hospital facilities use of any medicatio ns (including supplements, vitamins, herbs, OTC drugs) Assessments Type Assessment Date No Information Patient Care Teams Name Effective Dates (start - stop) Status Members No Information
--- OUTSIDE RECORDS SUMMARY | 2024-02-18 05:30 | XMS_ITS ---
Author Organization [facility] vices Address [address] [place] [id number] Care Team Providers Care Seamless Tube Drawer Name Role Phone Juno Ortiz Primary Care Provider [phone] Ly Kelly [phone] REASON FOR VISIT [facility] Social History Sex Assigned At : Social History Observation Description Sex Assigned At Female Encounters Encounter Location Date Provider Diagnosis Main [address] [place] [id number] 02/18/2024 Ly uDkes Plan Of Treatment Next Appt Details Provider Name:Quyen Randolph, 10/14/2024 02:00:00 PM, [address] [place], [id number], Progress Notes * Se MONTEeDOB:2000 (24 yo F)Acc No.[id number]:02/18/2024 Progress Notes Patient: Gabrielle JAMESJunitoBrianda Provider: Lisa Dukes :2000 A ge:23 Y S ex:Female Date:02/18/2024 [id number] Pcp:Juno Ortiz Subjective: * Chief Complaints: * 1 . [facility]. * Medical History: Objective: * Vitals: Assessment: Plan: * Treatment: Care Plan: * Problems: * Billing Information: * Visit Code: * Procedure Codes: * Electronic signature of JASKARAN Cuevas sa on 10/13/2024 at 06:20 PM EDT Sign off status: Pending * Provider: Lisa Dukes Date: 0 02/18/2024 Generated for Sheron Patton on: 0 10/13/2024 06:20 PM EDT
--- OUTSIDE RECORDS SUMMARY | 2024-02-20 06:30 | XMS_ITS ---
Author Organization [facility] vices Address [address] [place] [id number] Care Team Providers Care Sight Effects Specialist Name Role Phone Juno Ortiz Primary Care Provider [phone] REASON FOR VISIT 4 weeks Weight loss Social History Sex Assigned At : Social History Observation Description Sex Assigned At Female Encounters Encounter Location Date Provider Diagnosis Main [address] [place], [place] [id number] 02/20/2024 Juno Ortiz Plan Of Treatment Next Appt Details Provider Name:Quyen Randolph, 10/14/2024 02:00:00 PM, [address] [place], [place], [id number], Progress Notes * Se MONTEeDOB:2000 (24 yo F)Acc No.[id number]:02/20/2024 Medical Note Patient: Brianda ARGUELLO Provider: Chidi Ortiz :2000 A ge:23 Y S ex:Female Date:02/20/2024 Address[address] [place], [place] Subjective: * Chief Complaints: * 1 . 4 weeks Weight loss. * Medical History: Objective: * Vitals: Assessment: Plan: * Treatment: * Billing Information: * Visit Code: * Procedure Codes: * Electronic signature of IRASEMA Ortiz on 10/13/2024 at 06:19 PM EDT Sign off status: Pending * Provider: Chidi Ortiz Date: 0 02/20/2024 Generated for Sheron ames/Debby/Zurdo on: 0 10/13/2024 06:19 PM EDT
--- OUTSIDE RECORDS SUMMARY | 2024-03-27 06:30 | XMS_ITS ---
Author Organization [facility] vices Address [address] [place] [id number] Care Team Providers Care Senior Payroll Manager Name Role Phone Juno Ortiz Primary Care Provider REASON FOR VISIT 4 week weight loss Social History Sex Assigned At : Social History Observation Description Sex Assigned At Female Encounters Encounter Location Date Provider Diagnosis Main [address] [place] [id number] 03/27/2024 Juno Ortiz Plan Of Treatment Next Appt Details Provider Name:Quyen Radnolph, 10/14/2024 02:00:00 PM, [address] [place], [place], [phone], Progress Notes * Keegan MONTEOB:2000 (24 yo F)Acc No.[id number]:03/27/2024 Patient: Gabrielle JAMESJunitoBrianda Provider: Chidi Ortiz :2000 A ge:23 Y S ex:Female Date:03/27/2024 [address] [facility] [place] Subjective: * Chief Complaints: * 1 . 4 week weight loss. * Medical History: Objective: * Vitals: Assessment: Plan: * Treatment: * Billing Information: * Visit Code: * Procedure Codes: * Electronic signature of IRASEMA Ortiz on 10/13/2024 at 06:20 PM EDT Sign off status: Pending * Provider: Chidi Ortiz Date: 0 03/27/2024 Generated for Sheron ames/Debby/Zurdo on: 0 10/13/2024 06:20 PM EDT
[2024-10-13 18:17] VITALS: BP 135/93; PULSE 70; TEMP 36.6; O2SAT 99; BMI 41.6
--- OUTSIDE RECORDS SUMMARY | 2024-10-13 18:20 | XMS_ITS | Encounter Summary ---
Author Organization [facility] Address [address] [place] [address] Care Team Providers Care Application Packager Name Role Phone Unavailable Primary Care Provider Unavailabl e Reason for Visit * Reason Onset Date Comments Med Refill 10/03/2024 Encounter Details Date Type Department Care Team (Late st Contact Info) Description 10/03/2024 Refill [facility] [address] [facility] [place] [phone] Beto Quinones DO [address] [facility] [place] [address] PCOS (polycystic ovarian syndrome); Abnormal uterine bleeding (AUB) Social History Tobacco Use Types Packs/Day Years Used Date Smoking Tobacco: Never Assessed Comments Unknown Sex and Gender Information Value Date Recorded Sex Assigned at Not on file Legal Sex Female 1:55 PM EST Gender Identity Not on file Sexual Orientation Not on file documented as of this encounter Plan of Treatment Not on file documented as of this encounter Visit Diagnoses Diagnosis PCOS (polycystic ovarian syndrome) Polycystic ovaries Abnormal uterine bleeding (AUB) documented in this encounter
--- OUTSIDE RECORDS SUMMARY | 2024-10-13 18:20 | XMS_ITS | Clinical Summary ---
Author Organization [facility] Address [address] [place] [address] Care Team Providers Care Director Airport Name Role Phone Unavailable Primary Care Provider Unavailabl e Allergies No known active allergies Medications sertraline (Zoloft) 100 MG tablet Take 100 mg by mouth Daily 08/13/2023 Active metFORMIN XR (Glucophage-XR) 500 MG 24 hr tabletIndicatio ns:PCOS (polycystic ovarian syndrome),Abnor mal uterine bleeding (AUB) Take 1 tablet (500 mg) by mouth in the evening. Take with meals Do not crush, chew, or split. 30 tablet 11 07/16/2024 07/17/19 26 Active letrozole (Femara) 2.5 MG chemo tabletIndicatio ns:PCOS (polycystic ovarian syndrome),Abnor mal uterine bleeding (AUB) Take 1 tablet (2.5 mg total) by mouth Daily for 5 days. 5 tablet 09/08/2024 09/14/19 25 letrozole (Femara) 2.5 MG chemo tabletIndicatio ns:PCOS (polycystic ovarian syndrome),Abnor mal uterine bleeding (AUB) Take 2 tablets (5 mg total) by mouth Daily for 5 days. 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 09/18/2024 Refill [facility] [address] [place] [address] [place] [address] Keke Powell, [facility] 09/15/2024 2:30 PM EDT Ancillary Procedure [facility] [address] [place] [address] [place] [address] PCOS (polycystic ovarian syndrome); Abnormal uterine bleeding (AUB) 09/08/2024 Telephone [facility] [address] [address] [place] [address] [place] [address] Beto Quinones, DO 07/22/2024 Travel 07/16/2024 1:10 PM EDT Office Visit [facility] [address] [place] [address] [place] [address] Beto Quinones DO Female infertility; PCOS (polycystic ovarian syndrome); Abnormal uterine bleeding (AUB) 07/16/2024 Clinisync Result Encounter [facility] External Department Unsolicited Beto Quinones, 07/16/2024 Bamboo flowsheet [facility] [address] [place] [address] [place] [address] Beto Quinones, DO 07/13/2024 Travel from Last 3 Months [...] 07/16/2024 1:18 PM EDT Plan of Treatment Not on file Procedures Procedure Name Priority Date/Time Associated Diagnosis Comments PROGESTERONE Routine 09/24/2024 7:18 AM EDT US PELVIC COMPLETE W/ TV Routine 025 2:40 PM EDT PCOS (polycystic ovarian syndrome) Abnormal uterine bleeding (AUB) ALL DEHYDROEPIANDROSTERONE Routine 07/16 2:29 PM EDT ALL ANTI-MULLERIAN HORMONE Routine 07/16 2:29 PM EDT ALL FOLLICLE STIMULATING HORMONE Routine 07/16/2024 2:29 PM EDT ALL LUTEINIZING HORMONE Routine 07/17/19 25 2:29 PM EDT ALL DHEA SULFATE Routine 07/16/2024 2:29 PM EDT ALL THYROXINE (T4) FREE Routine 07/17/19 25 2:29 PM EDT TB[facility] PREG QUANT HCG Routine 07/16/2024 2: 29 PM EDT ALL THYROID STIM HORMONE Routine 025 2:29 PM EDT MLR HEMOGLOBIN A1C Routine 07/16/2024 2: 29 PM EDT ALL CBC WITH AUTO DIFF Routine 2:29 PM EDT from Last 3 Months Results * Progesterone (09/24/2024 7:18 AM EDT) PROGESTERONE 8.8 ng/mL [facility] Comment: FEMALES: 1st Tri: 4.7-50.7 ng/ml 2nd Tri: 19.4-45.3 ng/ml MENSTRUATING FEMALES: Follicular: 0.3-1.5 ng/ml Mid Luteal: 5.2-18.6 ng/ml Post Crystal: <0.1-0.8 ng/ml PERFORMED AT [facility] [address],[place] [address] 09/24/2024 7:18 AM EDT 09/24/2024 2:40 PM EDT us Beto Joni DO LAB BLOOD ORDERABLES Final Resul t [facility] * US Pelvis w/ TV (09/15/2024 2:40 PM EDT) Anatomical Region Laterality Modality Pelvis Ultrasound 09/16/2024 10:4 7 AM EDT Impressions 09/16/2024 11:12 AM EDT Normal pelvic ultrasound appearance. TRANSCRIBED BY: ELECTRONICALLY SIGNED BY: Parvez Mcfarland MD Narrative 09/16/2024 11:12 AM EDT FINDINGS: Uterus 9.4 x 4.4 x 5.9cm Endometrium 7 mm Right Ovary 4.6 x 2.1 x 3.1cm Left Ovary 3.2 2.5 x 2.8 cm The uterus is normal in size and orientation. No worrisome mass lesions are seen. Endometrium appears unremarkable. No fluid is seen within the cul-de-sac. Both ovaries appear normal for this age. Procedure Note Parvez Mcfarland MD - 09/16/2024 FINDINGS: Uterus 9.4 x 4.4 x 5.9cm Endometrium 7 mm Right Ovary 4.6 x 2.1 x 3.1cm Left Ovary 3.2 2.5 x 2.8 cm The uterus is normal in size and orientation. No worrisome mass lesionsare seen. Endometrium appears unremarkable. No fluid is seen within vhwfmg-[id number]. Both ovaries appear normal for this age. IMPRESSION: Normal pelvic ultrasound appearance. TRANSCRIBED BY: ELECTRONICALLY SIGNED BY: Parvez Mcfarland MD us Beto Joni DO IMG US PROCEDURES Final Result * [facility] PREG QUANT HCG (07/16/2024 2:29 PM EDT) Pathologist [facility] HCG QUANTITATIVE <1 mIU/mL [facility] Comment: 5-50 0.2-1 WEEK 50-500 1-2 WEEKS 100-5,000 2-3 WEEKS 500-10,000 3-4 WEEKS 1,000-50,000 4-5 WEEKS 10,000-100,000 5-6 WEEKS 15,000-200,000 6-8 WEEKS 10,000-100,000 2-3 MONTHS 07/16/2024 2:29 PM EDT 07/16/2024 2:31 PM EDT Narrative [facility] - 07/16/2024 3:30 PM EDT [facility] Final Result Performing Organization Address [facility] [place]/[facility] Co de Phone Number [facility] * MLR HEMOGLOBIN A1C (07/16/2024 2:29 PM EDT) [facility] GLYCOHEMOGLOBIN A1C 5.5 4.5 - 6.2 % TB Comment: ADA RECOMMENDED LIMIT 4.0 - 6.0 ADA THERAPEUTIC TARGET < 7.0 ACTION SUGGESTED > 7.0 ESTIMATED AVERAGE GLUCOSE 111 mg/dL TB 07/16/2024 2:29 PM EDT 07/16/2024 2:31 PM EDT Narrative [facility] - 07/16/2024 2:56 PM EDT Beto Joni DO [facility] Final Result [facility] * ALL THYROXINE (T4) FREE (07/16/2024 2:29 PM EDT) FREE T4 0.89 0.76 - 1.46 ng/dL [facility] 07/16/2024 2:29 PM EDT 07/16/2024 2:31 PM EDT Narrative [facility] - 07/16/2024 3:49 PM EDT Beto Joni DO [facility] Final Result Performing Organization Address [facility] Phone Number [facility] * ALL THYROID STIM HORMONE (07/16/2024 2:29 PM EDT) THYROID STIMULATING HORMONE 0.812 0.358 - 3.740 uIU/mL [facility] 07/16/2024 2:29 PM EDT 07/16/2024 2:31 PM EDT Narrative [facility] - 07/16/2024 3:30 PM EDT [facility] Joni DO [facility] Final Result Performing Organization Address [facility] Phone Number [facility] * ALL LUTEINIZING HORMONE (07/16/2024 2:29 PM EDT) LUTEINIZING HORMONE(LH) 3.2 . mIU/mL [facility] Comment: Adult Female Range Follicular phase 2.4 - 12.6 Ovulation phase 14.0 - 95.6 Luteal phase 1.0 - 11.4 Postmenopausal 7.7 - 58.5 07/16/2024 2:29 PM EDT 07/16/2024 2:31 PM EDT Narrative [facility] - 07/17/2024 4:07 AM EDT Beto Joni DO [facility] Final Result Performing Organization Address [facility] Phone Number [facility] * ALL FOLLICLE STIMULATING HORMONE (07/16/2024 2:29 PM EDT) FSH 2.6 . mIU/mL [facility] Comment: Adult Female Range Follicular phase 3.5 - 12.5 Ovulation phase 4.7 - 21.5 Luteal phase 1.7 - 7.7 Postmenopausal 25.8 - 134.8 Performed at: [address] [id number] Thread Winder: Tono Dumas PhD, Phone: [phone] 07/16/2024 2:29 PM EDT 07/16/2024 2:31 PM EDT Narrative [facility] - 07/17/2024 4:07 AM EDT Beto Joni DO [facility] Final Result [facility] * ALL DHEA SULFATE (07/16/2024 2:29 PM EDT) DHEA-SULFATE 175.0 110.0 - 431.7 ug/dL [facility] 07/16/2024 2:29 PM EDT 07/16/2024 2:31 PM EDT Narrative [facility] - 07/17/2024 4:07 AM EDT [facility] Joni DO [facility] Final Result Performing Organization Address City/[facility]/ZIP Co de Phone Number [facility] * ALL DEHYDROEPIANDROSTERONE (07/16/2024 2:29 PM EDT) DHEA, SERUM 196 31 - 701 ng/dL TB Comment: This test was developed and its performance characteristics determined by [facility]. It has not been cleared or approved by the Food and Drug Administration. Performed at: [address] [id number] Thread Winder: Jacquelyn Chao MD, Phone: [phone] 07/16/2024 2:29 PM EDT 07/16/2024 2:31 PM EDT Narrative [facility] - 07/20/2024 12:08 PM EDT Beto Joni DO CL[facility] Final Result [facility] * ALL CBC WITH AUTO DIFF (07/16/2024 2:29 PM EDT) [facility] TB WBC 8.0 4.0 - 11.0 10 3/uL [facility]H TBH RBC 4.40 4.20 - 5.40 10 6/uL [facility]H TBH HGB 12.8 12.0 - 16.0 g/dL [facility]H TBH HCT 37.0 36.0 - 48.0 % TBH TBH MCV 84.1 81.0 - 99.0 fL TBH TBH MCH 29.1 26.7 - 34.0 pg TBH TBH MCHC 34.6 29.9 - 35.2 g/dL [facility]H TBH RDW 12.8 11.0 - 15.0 % TBH TBH PLT 300 150 - 450 10 3/uL TBH TBH MPV 9.8 9.5 - 13.5 fL [facility]H NEUTROPHILS PERCENT AUTO 64.8 43.0 - 75.0 % TBH LYMPHOCYTES PERCENT AUTO 28.9 20.5 - 60.0 % TBH MONOCYTES PERCENT AUTO 3.9 1.7 - 12.0 % TBH TBH EO % 1.6 0.9 - 7.0 % TBH BASOPHILS PERCENT AUTO 0.4 0.2 - 2.0 % TBH IMMATURE GRANULOCYTES PCT AUTO 0.4 0.0 - 0.5 % TBH NEUTROPHILS ABSOLUTE AUTO 5.2 1.4 - 6.5 10 3/uL TBH LYMPHOCYTES ABSOLUTE AUTO 2.3 1.2 - 3.8 10 3/uL TBH MONOCYTES ABSOLUTE AUTO 0.3 0.3 - 0.8 10 3/uL TBH TBH EO # 0.1 0.0 - 0.7 10 3/uL TBH BASOPHILS ABSOLUTE AUTO 0.0 0.0 - 0.1 10 3/uL TBH IMMATURE GRANULOCYTES ABS AUTO 0.03 0.00 - 0.03 10 3/uL [facility] 07/16/2024 2:29 PM EDT 07/16/2024 2:31 PM EDT Narrative [facility] - 07/16/2024 2:35 PM EDT us Beto Joni DO [facility] Final Result [facility] * ALL ANTI-MULLERIAN HORMONE (07/16/2024 2:29 PM EDT) ANTI-MULLERIAN HORMONE (AMH) 6.66 . ng/mL [facility] Comment: For assays employing antibodies, the possibility exists for interference by heterophile antibodies in the samples.1 1.Onur Hogan Interferences in Immunoassays - still a threat. Clin. Chem. 2000; 46: 1587-5490. This test was developed and its performance characteristics determined by [facility]. It has not been cleared or approved by the Food and Drug Administration. Reference Range: Females 20 - 25y: 1.23 - 11.51 Median 4.70 AMH concentrations of >= 1.06 ng/mL is correlated with a better response to ovarian stimulation, produced more retrievable oocytes and higher odds of live according to Sharondaer et al. Fertility and Sterility. 2010: 94:6717-3115. The current AMH test method correlates with the study method with a slope of 0.94. Females at risk of ovarian hyperstimulation syndrome or polycystic ovarian syndrome (PCOS) may exhibit elevated serum AMH concentrations. AMH levels from PCOS patients may be 2 to 5 fold higher than age-appropriate reference interval values. Granulosa cell tumors of the ovary may secrete AMH along with other tumor markers. Elevated AMH is not specific for malignancy, and the assay should not be used exclusively to diagnose or exclude an AMH-secreting ovarian tumor. Performed at: [employer] [address] [place] [id number] Thread Winder: Yoel Chen MD, Phone: [phone] 07/16/2024 2:29 PM EDT 07/16/2024 2:31 PM EDT Narrative [facility] - 07/19/2024 4:50 AM EDT Beto Joni DO CL[facility] Final Result Performing Organization Address City/[facility]/ZIP Co de Phone Number [facility] from Last [address] [place] [address] [place] [address] [employer] [address] [facility]
--- OUTSIDE RECORDS SUMMARY | 2024-10-13 18:20 | XMS_ITS | Clinical Summary ---
Author Organization [facility] tem Address [id number] [address] 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 Name Role Phone No Pcp, No Pcp Primary Care Provider Unavailabl e Allergies No known active allergies Medications No known medications Encounters Date Type Department Care Team Description 09/24/2024 Travel from Last 3 Months Social History [...] Comments PROGESTERONE Routine 09/24/2024 7:18 AM EDT Polycystic ovarian syndrome Abnormal uterine and vaginal bleeding, unspecified from Last 3 Months Results * Progesterone (09/24/2024 7:18 AM EDT) PROGESTERONE 8.8 ng/mL 09/24/2024 3:16 PM EDT [facility] Comment: FEMALES: 1st Tri: 4.7-50.7 ng/ml 2nd Tri: 19.4-45.3 ng/ml MENSTRUATING FEMALES: Follicular: 0.3-1.5 ng/ml Mid Luteal: 5.2-18.6 ng/ml Post Crystal: <0.1-0.8 ng/ml Blood Venous blood / Unknown Venipuncture / Unknown 09/24/2024 7:18 AM EDT 09/24/2024 7:18 AM EDT us Beto R Joni DO LAB BLOOD ORDERABLES Final Resu lt [facility] [address] [place] [address], [place] [phone] from Last 3 Months Insurance [employer] Care Teams Truck Railroad And Bus Motor Mechanic Relationship Specialty Start Date End Date No Pcp, [place] [address] PCP - General Family Medicine 06/01/24
--- OUTSIDE RECORDS SUMMARY | 2024-10-13 18:20 | XMS_ITS | Encounter Summary ---
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
--- OUTSIDE RECORDS SUMMARY | 2024-10-13 18:20 | XMS_ITS | Patient Health Record ---
Author Organization [facility]ices Address [address] [place], [place] [address] Care Team Providers Care Music Artist Name Role Phone Juno Ortiz Primary Care Provider Mima Redmond Unavailable [phone] Ly Dukes Unavailable [phone] Allergies No Known Allergies Results Component Value Reference Range Notes LIPID PANEL WITH REFLEX TO D IRECT [...] high risk >7.1 >5.6 CHOL/HDL 6.8 2.0-4.5 POCT A1C Reviewed date:01/23/2024 01:04:20 PM Interpretation: Performing Lab: Notes/Report: COMPREHENSIVE METABOLIC PANE L WITH GFR Reviewed [...] 7.1 6.0-8.3 g/dL ALBUMIN 4.6 3.5-5.2 g/dL LDL-CHOL DIRECT Reviewed date:01/24/2024 08:04:06 AM Interpretation: Performing Lab: Notes/Report: LDL-CHOL, DIRECT 127 <130 mg/dL ADULT LDL CHOLESTEROL CLASSIFICATION <100mg/dL Optimal 100-129 Near/Abov e Optimal 130-159mg/dL Borderlin e High >160mg/dL High Risk Desirable range <100 mg/dL for patients with CHD or diabetes and <70 mg/dL for diabetic patients with known heart disease. TSH WITH FT4 REFLEX Reviewed date:01/24/2024 08:17:06 AM Interpretation: Performing Lab: Notes/Report: TSH 0.865 0.270-4.200 uIU/mL The [place] [employer] (JOSE M) recommends the following reference ranges for TSH levels during : First trimester: 0.1 to 2.5 mIU/L Second trimester: 0.2 to 3.0 mIU/L Third trimester: 0.3 to 3.0 mIU/L UNLESS OTHERWISE INDICATED, ALL TESTING PERFORMED AT: [employer] [address] [place] [id number] GLOVE CUTTER: ISAIAH ARCE M.D. [place] NUMBER [id number] [facility] ACCREDITATION AUID [id number] Reason For Referral Reason weight loss Diagnosis 1 Obesities, morbid (E 66.01) Referral Organization Main Referring Provider First Name Juno Referring Provider Last Name Studd Referring Provider Speciality Physician Wagon Winder Referred Provider Vel Nutrition T herapy Referred Provider Specialty Nutrition Referral Priority Routine Reason weight loss Diagnosis 1 Obesities, morbid (E 66.01) Diagnosis 2 BMI 40.0-44.9, adult (Z68.41) Referral Organization Main Referring Provider First Name Juno Referring Provider Last Name Studd Referring Provider Speciality Physician Wagon Winder Referred Provider [facility] Referred Provider Specialty Weight Loss General Notes Rosa Gonsales 02/06 11:31:53 AM >{{TOFIRSTNAME}} This is [facility] following up on an outstanding referral that was ordered by your provider. Please call our office at , so we can _update our records., Marcel Angela 02/14/2024 09:21:09 AM >no response from patient. Referral Priority Routine Medications Medication SIG (Take, Route, Frequency, Duration) Notes Start Date End Date Status Semaglutide(0.25 or 0.5MG/DOS) 2 MG/3ML 0.25mg Subcutaneous weekly; Duration: 28 days 01/23/2024 Active Fenofibrate 48 MG 1 tablet Orally Once a day; Duration: 30 day(s) 01/28/2024 Active Ft Mitchell 3 1000 MG 1 capsule Orally Thr ee times a day; Duration: 30 day(s) 01/28/2024 Active Social History Tobacco [...] felt bad or guilty about your drin ilana or drug use? 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 Stress is when someone feels tense, nervous, anxious, or can't sleep at night because their mind is troubled Not at all In the past year have you sp ent more than 2 nights in a row in a assisted, group home, snf center, or juvenile correctional facility? No Are [...] Problem Status W/U Status Risk Notes Problem Morbid obesity (331676599) Obesities, morbid (E66.01) Active confirmed Problem Body mass index 40+ - morbidly obese (680095213) BMI 40.0-44.9, adult (Z68.41) Active confirmed Problem Menstrual disorder (967258356) Irregular menses (N92.6) Active confirmed Problem Hypertriglyceridemia (226557054) Hypertriglyceridemia (E78.1) Active confirmed Vital Signs Heart Rate 73 /min 02/05/2024 Temperature 98.8 degrees Fahrenheit 01/28/2024 Angela Mattson 01/28/2024 10:07:26 AM EST > Respiratory Rate 18 /min 01/28/2024 Noreen Rod 01/28/2024 10:07:26 AM EST > Height-cm 175.26 cm 02/05/2024 Oximetry 100 % 01/28/2024 Brenda Rodnifer 01/28/2024 10:07:26 AM EST > Blood pressure diastolic 89 mm Hg 02/05/2024 Weight-kg 133.36 kg 02/05/2024 Height 69 in 02/05/2024 Blood pressure systolic 135 mm Hg 02/05/2024 Weight 294 lbs 02/05/2024 BMI 43.41 kg/m2 02/05/2024 Encounters Encounter Location Date Provider Diagnosis Main [address] [place] [id number] 01/23/2024 Juno Studd Screening for diabet es mellitus Z13.1 ; Obesities, morbid E66.01 ; BMI 40.0-44.9, adult Z68.41 ; Screening for thyroid disorder Z13.29 ; Screening for cardiovascular condition Z13.6 and Irregular menses N92.6 Main [address] [facility] [place] [id number] 01/28/2024 Juno Studd Obesities, morbid E6 6.01 and Hypertriglyceridemia E78.1 Dental Main [address] [place], [place] [id number] 02/05/2024 Mima Redmond Encounter for screening for dental disorders Z13.84 ; Dental caries into dentine K02.62 and Encounter for dental examination and cleaning with abnormal findings Z01.21 Main [address] [facility] [place] [id number] 01/23/2024 Juno Studd Main [address] [place] [id number] 01/24/2024 Juno Studd Main [address] [place] [id number] 01/24/2024 Juno Studd Main [address] [place] [id number] 01/25/2024 Juno Studd Main [address] [facility] [id number] 01/25/2024 Juno Studd Obesities, morbid E6 6.01 Main [address] [place] [id number] 02/01/2024 Juno Studd Main [address] [place] [id number] 02/04/2024 Juno Studd Main [address] [place] [place] [id number] 02/05/2024 Juno Studd Main [address] [place] [id number] 02/05/2024 Juno Studd Main [address] [place] [id number] 02/07/2024 Juno Studd Main [address] [place] [id number] 02/20/2024 Juno Studd Obesities, morbid E6 6.01 Main [address] [place], [place] [id number] 09/04/2024 Juno Studd Assessments Encounter Date Diagnosis (ICD Code) Assessment [...] set up own appointment Plan Of Treatment Next Appt Details Provider Name:Quyen Randolph, 10/14/2024 02:00:00 PM, [address] [place], [id number], Insurance Providers Payer Name Payer Address Payer Phone Subscriber Number Group Number Insured Name Patient Relationship to Insured Coverage Start Date Coverage End Date [facility] [address] [place] [address] [id number] Brianda Harding Self - patient is the insured Medical (General) History Medical History History ICD Code miscariage Surgical History Surgery Date(Month/Year) cholecystectomy 2022 Hospitalization History Reason Date(Month/Year) see above
--- NOTE | 2024-10-13 19:23 | CT_ITS ---
The [address] [address] Patient Name: KRANTHI ALMANZA MRN: [id number] date: 2000 Sex: F Assigned Patient Location: ER Current Patient Location: ER Accession/Order Number: [id number] Exam Date: 10/13/2024 19:50 Report Date: 10/13/2024 20:26 At the request of: KATIE RAMSEY MD Procedure: CT head/brain wo con CT BRAIN WITHOUT CONTRAST: CLINICAL HISTORY: headache COMPARISON: None TECHNIQUE: Contiguous axial unenhanced images were obtained through the brain. This CT exam was performed using one or more following dose reduction techniques: Automated exposure control, adjustment of the mA and/or kV according to patient size, or use of iterative reconstruction technique. FINDINGS: There is no evidence of midline shift, intra or extra-axial fluid collection, hemorrhage or CT evidence of acute large vascular distribution stroke Visualized intraorbital contents appear unremarkable. Visualized paranasal sinuses are clear. The surrounding soft tissues are normal. CT/CT head/brain wo con IMPRESSION: NO ACUTE INTRACRANIAL ABNORMALITY. Impression dictated by: Patric Weber M.D. 10/13/2024 8:26 PM Dictation Location: [place] [address] Electronically authenticated by: [id number] Y Date: 10/13/2024 20:26
--- NOTE | 2024-10-13 19:23 | CT_ITS ---
The [address] [address] Patient Name: KRANTHI ALMANZA MRN: [id number] date: 2000 Sex: F Assigned Patient Location: ER Current Patient Location: ER Accession/Order Number: [id number] Exam Date: 10/13/2024 19:50 Report Date: 10/13/2024 20:28 At the request of: KATIE RAMSEY MD Procedure: CT facial bones wo con MAXILLOFACIAL CT WITHOUT CONTRAST: CLINICAL HISTORY: headache COMPARISON: None TECHNIQUE: Spiral axial unenhanced images were obtained through the facial bones. Coronal and sagittal reconstructions were also reviewed. This CT exam was performed using one or more following dose reduction techniques: Automated exposure control, adjustment of the mA and/or kV according to patient size, or use of iterative reconstruction technique. FINDINGS: No facial bone fracture or bony destruction is identified. There is appropriate development and pneumatization of the paranasal sinuses. There is no mucosal thickening or fluid levels. The ostiomeatal complexes are patent. The intraorbital contents are unremarkable. CT/CT facial bones wo con IMPRESSION: NO EVIDENCE OF FACIAL BONE INJURY Impression dictated by: Patric Weber M.D. 10/13/2024 8:28 PM Dictation Location: [place] [address] Electronically authenticated by: [id number] Y Date: 10/13/2024 20:28
--- NOTE | 2024-10-13 19:24 | ED.GENADUL1 ---
HPI HPI - General Adult General Chief complaint: Headache Stated complaint: HEADACHE Time Seen by Provider: 10/13/24 19:17 Source: patient Mode of arrival: walk-in Limitations: no limitations History of Present Illness HPI narrative: presents complaining of migraine headache for past 2 weeks. Pain behind right eye and radiates back to right side of her scalp. Neg neck stiffness of fever. Right eye is light sensitive and she becomes nauseated but has not vomited. Headache today was intense. Has been taking motrin and it has finally helped and the headache has eased off. No longer naueated and right eye no longer light sensitive. No paresthesia. No fever Related Data Allergies Allergy/AdvReac Type Severity Reaction Status Date / Time No Known Drug Allergies Allergy Verified 10/13/24 18:17 Opioid HPI Opioid Management Most Recent Opioid Data: Last Pain Scale 3 Today, 20:39 Last ED Pain Assessment Today, 20:39 Review of Systems ROS Status of ROS 10 or more systems reviewed and unremarkable except as noted in history and below PFSH PFSH Social History Little interest or pleasure in doing things: not at all Feeling down, depressed, or hopeless: not at all Exam Constitutional Vital Signs, click to edit/add: Last Vital Signs Temp 98 F 10/13/24 18:17 Pulse 70 10/13/24 18:17 BP 135/93 H 10/13/24 18:17 Pulse Ox 99 10/13/24 18:17 O2 Del Method Room Air 10/13/24 18:17 Common normals: no apparent distress, average body habitus, oriented x3, no limitations, healthy appearing, alert and well nourished [facility] Common normals: normocephalic and head/scalp atraumatic Eye Common normals: PERRL, EOMs intact bilaterally and conjunctivae normal Respiratory Common normals: normal respiratory effort, no retractions, no use of accessory muscles and clear to auscultation bilaterally Cardio Common normals: regular rate, regular rhythm, S1 normal heart sound and S2 normal heart sound GI Common normals: Normal to inspection, nondistended, normoactive bowel sounds present, soft to palpation and non-tender Extremity Common normals: normal to inspection and full ROM Neuro Common normals: oriented x3, CN's II-XII intact bilaterally and moves all extremities Psych Appearance: grossly normal Course Vital Signs Vital signs: Vital Signs Temperature 98 F 10/13/24 18:17 Pulse Rate 70 10/13/24 18:17 Blood Pressure 135/93 H 10/13/24 18:17 Pulse Oximetry 99 10/13/24 18:17 Oxygen Delivery Method Room Air 10/13/24 18:17 Temperature 98 F 10/13/24 18:17 Pulse Rate 70 10/13/24 18:17 Blood Pressure 135/93 H 10/13/24 18:17 Pulse Oximetry 99 10/13/24 18:17 Oxygen Delivery Method Room Air 10/13/24 18:17 Medical Decision Making MDM Narrative Medical decision making narrative: patient presents complaining of headache for past 2 weeks. Headache improves with OTC NSAIDs but never completely resolves. Pain behind right eye and forehead/scalp exam neg. CT brain and CT facial bones neg patient improved after treatment in the department. States she is feeling much better. Discharged home to continue workup via her PCP Lab Data Labs: Lab Results 10/13/24 Range/Units 19:30 WBC 8.2 (4.0-11.0) 10^3/uL RBC 4.75 (4.20-5.40) 10^6/uL Hgb 13.6 (12.0-16.0) g/dL Hct 40.2 (36.0-48.0) % MCV 84.6 (81.0-99.0) fL MCH 28.6 (26.7-34.0) pg MCHC 33.8 (29.9-35.2) g/dL RDW 13.1 (11.0-15.0) % Plt Count 330 (150-450) 10^3/uL MPV 9.8 (9.5-13.5) fL Neut % (Auto) 66.7 (43.0-75.0) % Lymph % (Auto) 26.6 (20.5-60.0) % [place] % (Auto) 4.3 (1.7-12.0) % Eos % (Auto) 1.2 (0.9-7.0) % Baso % (Auto) 0.5 (0.2-2.0) % Neut # (Auto) 5.4 (1.4-6.5) 10^3/uL Lymph # (Auto) 2.2 (1.2-3.8) 10^3/uL [place] # (Auto) 0.4 (0.3-0.8) 10^3/uL Eos # (Auto) 0.1 (0.0-0.7) 10^3/uL Baso # (Auto) 0.0 (0.0-0.1) 10^3/uL Abs Immat Gran (auto) 0.06 H (0.00-0.03) 10^3/uL Imm/Tot Granulo (auto) 0.7 H (0.0-0.5) % Sodium 140 (136-145) mmol/L Potassium 4.2 (3.5-5.1) mmol/L Chloride 104 (98-107) mmol/L Carbon Dioxide 25.9 (21.0-32.0) mmol/L Anion Gap 14.3 BUN 10.0 (7.0-18.0) mg/dL Creatinine 0.67 (0.55-1.02) mg/dL Est GFR ( Amer) >60 (>=60 mL/min/1.73m^2) Est GFR (Non-Af Amer) >60 (>=60 mL/min/1.73m^2) BUN/Creatinine Ratio 14.9 Glucose 103 (74-106) mg/dL Calcium 9.3 (8.5-10.1) mg/dL Discharge Plan Discharge Chief Complaint: Headache Clinical Impression: Headache Patient Disposition: Home, Self-Care Print Language: Bulgarian Instructions: Acute Headache (ED) Additional Instructions: follow up with your family doctor this week for recheck Referrals: Beto Quinones DO [Primary Care Provider, S[employer]IOR [employer]ICAL PROGRAM [employer]NAGER] - 1 week
[2024-10-13] MEDS: DIPHENHYDRAMINE HCL 50 MG/ML VIAL 25 MG IVP (19:44)
[2024-10-13] MEDS: METOCLOPRAMIDE HCL 10 MG/2 ML VIAL IVP (19:45)
[2024-10-13] MEDS: METHYLPREDNISOLONE SOD SUCC PF 125 MG/2 ML VIAL IVP (19:45)
[2024-10-13 19:46] LABS: Hematocrit 40.2 % (36.0-48.0); Hemoglobin 13.6 g/dL (12.0-16.0); Immature Granulocytes Abs Auto 0.06 10^3/uL (0.00-0.03); Immature Granulocytes Pct Auto 0.7 % (0.0-0.5); Lymphocytes Absolute Auto 2.2 10^3/uL (1.2-3.8); Mean Corpuscular HGB Conc 33.8 g/dL (29.9-35.2); Mean Corpuscular Hemoglobin 28.6 pg (26.7-34.0); Mean Corpuscular Volume 84.6 fL (81.0-99.0); Platelet Count 330 10^3/uL (150-450); Red Blood Count 4.75 10^6/uL (4.20-5.40); White Blood Count 8.2 10^3/uL (4.0-11.0)
[2024-10-13 19:54] LABS: Anion Gap 14.3; Blood Urea Nitrogen 10.0 mg/dL (7.0-18.0); Calcium 9.3 mg/dL (8.5-10.1); Carbon Dioxide 25.9 mmol/L (21.0-32.0); Chloride 104 mmol/L (98-107); Estimated GFR (African America >60 (>=60 mL/min/1.73m^2); Estimated GFR (Non-African Ame >60 (>=60 mL/min/1.73m^2); Glucose 103 mg/dL (74-106); Potassium 4.2 mmol/L (3.5-5.1); Sodium 140 mmol/L (136-145)
== END 2024-10-13 20:58 | disposition home or self-care (01) ==
PROVIDERS: Emergency Provider Internal Medicine; PCP Obstetrics & Gynecology
DX: R51.9 Headache, unspecified (principal)
CPT/HCPCS: 36415; 70450; 70486; 76376; 80048; 85025; 96374; 96375; 99285; J1200; J2765; J2919

== ENCOUNTER 2024-12-25 11:41 | Outpatient (OUT) | payer OTHER, SELFPAY | END 2024-12-25 11:42 | disposition home or self-care (01) | PROVIDERS: Visit Provider Obstetrics & Gynecology | DX: E28.2 Polycystic ovarian syndrome (principal); N93.9 Abnormal uterine and vaginal bleeding, unspecified | CPT/HCPCS: 36415; 84144 ==